=== PATIENT | female | born 1970 | race Two or more races ===

== ENCOUNTER → 2018-07-07 10:25 | Outpatient (CLI) | payer OTHER, SELFPAY ==
--- NOTE | 2018-07-07 10:29 | BI_ITS ---
MAMMOGRAPHY - BILATERAL SCREENING REASON FOR EXAM: Female, 48 years old. Routine annual screening examination. PERTINENT HISTORY: Non-contributory. TECHNIQUE: Digital bilateral breast terrell (3D mammographic acquisition) in the CC and MLO projections. 2-D mediolateral oblique (MLO) and craniocaudad (CC) views of both breasts were obtained. CAD: Full Field Digital Mammography with Computer Added Detection was performed. COMPARISON: Comparison is made with prior artery examination dated December 06, 2016. FINDINGS: Breast Composition: The breasts are heterogeneously dense, which may obscure small masses. There are no dominant masses or suspicious calcifications. Stable benign-appearing left axillary lymph nodes. No other significant abnormalities are identified. There has been no significant change since the prior study. BI/SCREENING MAMM (CAD), BILAT IMPRESSION: Stable bilateral screening mammogram. Yearly follow-up mammogram recommended. (A) ASSESSMENT CATEGORY: BIRADS Category 2: Benign. A letter regarding these results will be sent to the patient by the facility within 30 days. Approximately 10% of breast cancers are not detected by mammography. A normal mammogram should not delay biopsy of a clinically suspicious abnormality. [id number] Electronically Signed: Ricci Reddy MD at 9:02 EST Tel [phone], Service support ,
== END ==
PROVIDERS: Family Provider Family Medicine; PCP Family Medicine; Referring Provider Family Medicine; Visit Provider Family Medicine
DX: Z12.31 Encounter for screening mammogram for malignant neoplasm of breast (principal)
CPT/HCPCS: 77063; 77067

== ENCOUNTER 2018-07-23 21:42 | Emergency (ER) | payer OTHER, SELFPAY ==
[2018-07-23 21:43] VITALS: BP 199/118; PULSE 88; RESP 16; TEMP 36.7; O2SAT 98; BMI 26.6
[2018-07-23] MEDS: Ondansetron 4 MG/2 ML Vial IV (22:20)
[2018-07-23] MEDS: Ketorolac 30 MG/ML Syringe IV (22:20)
[2018-07-23] MEDS: Mag Hydrox/Al Hydrox/Simeth 30 ML UDC PO (22:20)
[2018-07-23] MEDS: 0.9% Normal Saline 1,000 ML 1000 ML IV (22:20)
[2018-07-23 22:33] LABS: Absolute Lymphocyte Count 1.91 X10^3/ul (0.83-4.51); Absolute Neutrophil Count 4.4 X10^3/uL (2.0-7.7); Basophil# 0.02 X10^3/uL; Basophil% 0.3 % (0-1); Eosinophil# 0.15 X10^3/uL; Eosinophils% 2.1 % (0-5); Hematocrit 38.6 % (37-47); Hemoglobin 12.6 g/dl (12.0-15.0); Lymphocyte # 1.91 X10^3/ul (4.0); Lymphocyte % 26.1 % (19-41); Mean Corp Hgb Conc 32.6 g/gl (32-36); Mean Corpuscular Volume 79.6 fL (81-99); Mean Platelet Vol. 9.3 fl (6.2-12.0); Monocyte# 0.84 X10^3/uL; Monocyte% 11.5 % (0-10); Neutrophil # 4.39 X10^3/uL (2.7-7.7); POSITIVE COUNT NO; POSITIVE DIFFERENTIAL NO; POSITIVE MORPHOLOGY NO; Platelet Count 194 K/mm3 (150-450); RBC Distribution Width SD 37.2 fl (35.1-43.9); Red Blood Count 4.85 M/mm3 (4.2-5.4); White Blood Count 7.3 K/mm3 (4.4-11.0)
[2018-07-23 22:49] LABS: AST(SGOT) 16 U/L (15-37); Alanine Aminotransfer ALT/SGPT 22 U/L (13-56); Albumin, Serum 3.5 g/dL (3.2-5.0); Alkaline Phosphatase 129 U/L (45-117); Anion Gap 5 (5-15); BUN 13 mg/dL (7-18); BUN/Creat Ratio 16.6 RATIO (10-20); Calcium,Total 8.3 mg/dL (8.5-10.1); Chloride 106 mmol/L (98-107); Creatinine, Serum 0.78 mg/dL (0.55-1.02); EST Glomerular Filtration Rate 84 mL/min (>60); Est Glom Filt Rate - Afr Amer 101 mL/min (>60); Estimated Creatinine Clearance 80.23 ml/min; Globulin 3.5 g/dL (2.2-4.2); Glucose 110 mg/dL (74-106); Lipase 148 U/L (73-393); Potassium 3.4 mmol/L (3.5-5.1); Sodium Level 140 mmol/L (136-145)
[2018-07-23 23:02] LABS: Pregnancy, Serum, hCG Quali. NEGATIVE Negative (0-9 Nonpreg)
--- NOTE | 2018-07-23 23:16 | ED.VISSUMM ---
- ER Visit Summary Date of Service: 07/23/18 Chief Complaint: Abdominal pain History of Present Illness: The patient is a [address] Navarro. She reports that she has upper abdominal pain began 2 days ago. It is a continuous dull, cramping pain. Zeta 10 at worst and 5-10 currently. Is worsened by movement and eating. Is relieved by nothing. She has had nausea without vomiting. No diarrhea. Her last bowel was today. No melena or hematochezia. No dysuria or frequency. She is on her menstrual cycle now. Patient works as an [employer] and has had multiple sick contacts. She has not been camping out of the country. No recent antibiotic use. No possible bad food exposure. She does not drink well water. Physical Examination: Vitals: Stable. Afebrile. General: Well-nourished and well-developed. Head: Normocephalic atraumatic. Neck: Supple, no lymphadenopathy. No JVD. Nontender. Cardiovascular: Regular rate and rhythm. No murmurs. Respiratory: No respiratory distress. Clear to auscultation bilaterally. Abdominal: Soft, mild epigastric tenderness to palpation, nondistended, normal bowel sounds. No guarding, rebound, or peritoneal signs. Back: Nontender. Extremities: Nontender, no edema. Skin: Normal color, no rash. Neurologic: Alert and oriented ?3. Cranial nerves II through XII are intact. Normal strength and sensation. Psych: Normal affect. Test Results: CBC is remarkable for monocytes of 12. Chem-7 is more for glucose 110 and calcium of 8.3. LFTs are normal. Lipase is minimally elevated at 129. test is negative. Emergency Department Course and Treatment: Patient was treated with Toradol and Zofran IV. She was given a GI cocktail and had complete resolution of her pain. She is resting comfortably. Treatment Plan: Patient reports that she was taking a great deal of naproxen until last week. I suspect that there is a component of gastritis. She will be discharged with Zofran and Zantac. Instructed to follow-up with her primary care physician in 3-5 days if not improving. Return to the emergency department for any worsening symptoms. Disposition: To home in improved and stable condition. Impression: 1. Abdominal pain, uncertain cause. This note was generated with Dragon dictation software. It may contain incorrect words, spelling, and punctuation that were not noted in review of the chart prior to signing ED Disposition - Plan for ED Patient: Chief Complaint: Abd Pain Instructions: ED Abdominal Pain Unkn Cause Prescriptions: Ondansetron [Zofran Odt] 4 mg PO Q8H PRN PRN #10 tablet PRN Reason: Nausea Ranitidine [Zantac] 300 mg PO DAILY #30 tablet Referrals: Guzman Navarro [Primary Care Provider] - 3-5 Days if not improving
[2018-07-23 23:26] VITALS: BP 157/99; PULSE 84; RESP 15; O2SAT 99
== END 2018-07-23 23:31 | disposition home or self-care (01) ==
LOC: ED 22:07
PROVIDERS: Emergency Provider Emergency Medicine; Family Provider Family Medicine; PCP Family Medicine
DX: R10.10 Upper abdominal pain, unspecified (principal); R11.0 Nausea; I10 Essential (primary) hypertension; Z79.899 Other long term (current) drug therapy
CPT/HCPCS: 80053; 83690; 84703; 85025; 96361; 96374; 96375; 99284; J7030; J2405

== ENCOUNTER → 2018-07-29 08:41 | Outpatient (CLI) | payer OTHER, SELFPAY ==
[2018-07-23 21:43] VITALS: BMI 26.6
--- NOTE | 2018-07-29 08:45 | US_ITS ---
STUDY: ABDOMINAL ULTRASOUND REASON FOR EXAM: Female, 48 years old. Pain. TECHNIQUE: Transabdominal ultrasound was performed with real-time and static sanford scale imaging. TECHNICAL QUALITY: Adequate. COMPARISON: None. FINDINGS: Liver: The liver measures 15.9 cm. There is normal echogenicity of the liver. The bile ducts are within normal limits. There is hepatic color flow. The direction of portal flow is hepatopetal. There is no demonstrated mass lesion. Portal vein measurement: Gallbladder: Normal distended gallbladder. The gallbladder wall measures 2.8 mm. There is a negative sonographic Palencia's sign. There is no pericholecystic fluid. There are no gallstones. Common Bile Duct (C.B.D.): The common bile duct measures 3 mm. Pancreas: Normal size of the head, body and tail of the pancreas. There is normal echogenicity of the pancreas. There is no demonstrated pancreatic mass or cyst. Spleen: Normal size of the spleen. The spleen measures 10.3 cm. Right Kidney: Normal size of the right kidney. The right kidney measures 10.4 cm. Normal renal cortex. The right cortex measures 1.8 cm. There is no demonstrated renal mass or cyst. Several small nonobstructing stones are seen no larger than 4 mm. There is no right hydronephrosis. Left Kidney: Normal size of the left kidney. The left kidney measures 10.5 cm. Normal renal cortex. The left cortex measures 1.9 cm. There is no demonstrated renal mass or cyst. There is a 1 cm nonobstructing stone. There is no left hydronephrosis. Aorta: 2.6 cm I.V.C.: The IVC is patent. There is no ascites. US/Abdomen Complete IMPRESSION: Bilateral nonobstructing renal stones. No definite acute economic. Electronically Signed: Damián Yeung MD at 10:43 EST , Service support ,
--- OUTSIDE RECORDS SUMMARY | 2018-09-14 07:05 | XMS RPT_ITS ---
:1970 Author Organization OH[facility] Care Team Providers Name Role Phone Reji Ugalde Attending Unavailable UNKNOWN, PROVIDER Referring Unavailable Fracasso, Guzman Primary Care Unavailable Fracasso, Guzman Attending Unavailable Fracasso, Guzman Referring Unavailable Fracasso, Guzman Primary Care Unavailable Fracasso, Guzman Attending Unavailable Fracasso, Guzman Referring Unavailable Fracasso, Guzman Primary Care Unavailable James Rossi Attending Unavailable Fracasso, Guzman Primary Care Unavailable PETRILLA, JOHNNIE Attending Unavailable PETRILLA, JOHNNIE Referring Unavailable PETRILLA, JOHNNIE Primary Care Unavailable Fracasso, Guzman Primary Care Unavailable Tara Hernandez Attending Unavailable PROBLEMS PROBLEMS DATE TYPE CONDITION / CODE ATTENDING STATUS SOURCE 08/05/2018 Admitting Chronic [facility] Diagnosis cholecystitis / Reji System K81.1(ICD-10) Repository 08/05/2018 Admitting Allergic rhinitis, [facility] Diagnosis unspecified / Re[facility] System J30.9(ICD-10) Repository 08/05/2018 Admitting Carpal tunnel [facility] Diagnosis syndrome, [facility] System unspecified upper Repository limb / G56.00(ICD-10) 08/05/2018 Admitting Essential (primary) [facility] Diagnosis hypertension / Reji System I10(ICD-10) Repository 08/05/2018 Admitting Atopic dermatitis, [facility] Diagnosis unspecified / Reji System L20.9(ICD-10) Repository 08/05/2018 Admitting Raynaud's syndrome [facility] Diagnosis without gangrene / Reji System I73.00(ICD-10) Repository 08/05/2018 Admitting Allergy status to [facility] Diagnosis oth drug/meds/biol Reji System subst status / Repository Z88.8(ICD-10) PROCEDURES PROCEDURES No Procedure Records FoundRESULTS RESULTS OP NOTE Observed: 08/05/2018 Status: F Source: [facility] 2:11 PM SYSTEM REPOSITORY OPERATIVE NOTE DATE OF PROCEDURE: 08/05/2018 SURGEON: REJI UGALDE M.D., TITUS GLASSWARE FINISHER: see chart PREOPERATIVE DIAGNOSIS: Chronic cholecystitis POSTOPERATIVE DIAGNOSIS: Same OPERATION: Laparoscopic cholecystectomy ANESTHESIA: General anesthesia ESTIMATED BLOOD LOSS: less than 50 COMPLICATIONS: None SPECIMENS: Gallbladder HISTORY: The patient is a 48 y.o. year old female with history of above preop diagnosis. I explained the risk, benefits, expected outcome, and alternatives to the procedure. Patient understands and is in agreement to proceed with operation. PROCEDURE: Patient taken to the operating room and placed supine on the operating table. After adequate anesthesia and timeout protocol was completed. The surgical area was prepped and draped in standard sterile fashion. Local anesthetic was placed at each incision site prior to making each incision. 5mm infraumbilical incision made and Veress needle placed intraabdominal with proper placement confirmed by normal flush saline. Pneumoperitoneum was established with CO2 gas to pressure of 15 mm Hg and 5mm non-bladed infraumbilical port then placed. Under direct vision, a 10/12 mm non-bladed trocar/port was inserted in the epigastrium just to the right of the midline. Two 5mm non-bladed trocars/ports were placed in the right upper quadrant under direct visualization. Patient then placed in reverse trendelenburg and rotated to the left. The gallbladder was grasped at the fundus with grasper through the right lateral canula and at the neck with a grasper through the right mid canula. The neck of the gallbladder was retracted laterally. Dissection in the region of the triangle of Calot revealed the cystic duct and cystic artery. The cystic duct was isolated. The cystic duct was clipped distally x 2 and proximally x 2. The cystic duct was then transected. The cystic artery was then isolated and doubly clipped proximally and distally then transected. The gallbladder was dissected from the liver bed with right angle hook cautery. Gallbladder was then removed from abdomen using a laparoscopic bag. The right upper quadrant was irrigated until clear. Epigastric fascia closed with 2-0 vicryl suture. Hemostasis was observed. The abdomen was then desulflated and cannulas removed. The wounds were irrigated and the skin incisions closed with interrupted 4-0 Vicryl subcuticular sutures. Benzoin, steri strips, and sterile dressings were applied. The sponge and needle count were correct. The patient tolerated the procedure well and was sent to PACU in stable condition. Reji Ugalde M.D., FACS Observed: 08/05/2018 Status: F Source: [facility] SURGICAL PATHOLOGY 1:54 PM SYSTEM REPOSITORY [id number] [facility] PATHOLOGY AND LABORATORY MEDICINE [address] [place] [address] [phone] Fax - FINAL SURGICAL PATHOLOGY REPORT NAME: SUSHIL LACY : 1970 48 Y Nickolas BENNETT NO.: [id number] LOCATION: [facility] 333 2 PROCEDURE 08/05/2018 DATE: SURGEON: REJI UGALDE MD RECEIVED 08/05/2018 DATE: ATTENDING: REJI UGALDE MD REPORT DATE: 08/07/2018 COPIES TO: DIAGNOSIS: GALLBLADDER, CHOLECYSTECTOMY - CHRONIC CHOLECYSTITIS JAW/SSF <Sign Out Signature> MAMADOU LOVING M.D. CLINICAL INFORMATION: Biliary colic SPECIMEN: GALLBLADDER GROSS DESCRIPTION: Gallbladder Received in formalin is a 7 x 3 x 3 cm intact gallbladder. The cystic duct appears patent. The serosal surface is sanford-green, smooth, and glistening. The lumen contains abundant, green, mucoid bile and there are no calculi grossly identified within the lumen or within the specimen container. The mucosa is bile-stained, green, flattened, and the wall thickness is uniform at 0.2 cm. No masses are identified. Mold Press Operator sections are submitted in one cassette. (3 ss, 1) [facility] Disclaimer: The following statement applies to all immunohistochemistry, in situ hybridization, molecular studies, and immunofluorescence testing. The use of one or more reagents in the above tests is regulated as an analyte specific reagent (ASR). These tests were developed and their performance characteristics determined by the clinical laboratories of [facility]. They have not been cleared by the US Food and Drug Administration (FDA). The FDA has determined that such clearance or approval is not necessary. All the above immunostains were performed on paraffin embedded tissue. Appropriate positive and negative controls (where applicable) were run in parallel with the patient's specimen; these controls showed expected staining pattern, with acceptable intensity of staining. Immunohistochemical assays have not been validated on decalcified tissues. Results should be interpreted with caution given the raised possibility of false negativity on decalcified specimens. Case reviewed at [place] [address] [place] [address]. DEPARTMENT OF PATHOLOGY AND LABORATORY MEDICINE [place], [place] [address] HCG,URINE QUAL Collected: 08/05/2018 Status: F Source: [facility] 10:45 AM SYSTEM REPOSITORY TYPE CODE TESTS RESULT OUT OF REFERENCE UNITS RANGE LAB HCGUR Negative NA Negative HCG,Urine Qual Result Comment: is the most common reason for HCG in urine, although choriocarcinoma, hydatidiform mole, and certain nontropho- blastic malignancies also result in detectable urinary HCG levels. Sensitivity = 20mIU/mL. Performed By: #### HCGUR #### [facility] [address] [place] [address] 12 LEAD ELECTROCARDIOGRAM Observed: 08/01/2018 Status: F Source: [place] 9:10 AM [facility] REPOSITORY [facility] Cardiovascular Services [address] [place] [address] 12 Lead EKG 07/29/18 1849 MR#: [id number] Acct: [id number] Name: SUSHIL LACY Rep #: [id number] : 1970 48 From: Willem Olvera MD Attending Dr: Status: DEP ER Ordering Dr: Tara Hernandez MD Date: 07/29/18 Location: ED Sex: F UTD Admitted: Test Reason : ABD PAIN Blood Pressure : / mmHG Vent. Rate : 078 BPM Atrial Rate : 078 BPM P-R Int : 152 ms QRS Dur : 074 ms QT Int : 380 ms P-R-T Axes : 064 039 052 degrees QTc Int : 433 ms Normal sinus rhythm with sinus arrhythmia Normal ECG Confirmed by RODRIGUEZ HOOVER, WILLEM ([id number]), photographic editor SANNA LEÓN ([id number]) on 08/01/2018 9:09:46 AM Referred By: Guzman Navarro Confirmed By:WILLEM OLVERA MD 08/01/18 0909 Date Willem Olvera MD CC: Tara Hernandez MD; Guzman Navarro Signed HEPATOBILLIARY IMG Observed: 07/30/2018 Status: F Source: [place]EL W/PHARM INT 12:09 PM [facility] REPOSITORY [facility] Imaging Services [address] [place] [id number] Hepatobilliary Img w/Pharm Int MR#: [id number] Acct: [id number] Name: BAMBISUSHIL L Rep #: [id number] : 1970 F 48 From: Howard Guerrero DO PCP: Guzman Navarro Status: REG CLI Study: Hepatobilliary Img w/Pharm Int Date of Exam: 07/30/18 Exam# [id number] Ordering Dr: Guzman Navarro CLINICAL: 48-year-old female with history of right upper quadrant abdominal pain. RADIONUCLIDE HEPATOBILIARY SCINTIGRAPHY COMPARISON: Abdominal ultrasound report 07/29/2018, CT of the abdomen- pelvis report 07/29/2018 FINDINGS: Following the intravenous administration of 5.8 mCi of 99m Tc Mebrofenin, hepatobiliary images reveal: 1. Relatively prompt and homogeneous radiopharmaceutical concentration is noted by a normal sized liver. No parenchymal defects are identified. 2. Gallbladder activity is identified at 10 minutes post radiopharmaceutical administration. 3. Small intestinal tract is observed at 30 minutes following tracer injection. 4. Washout of the radiopharmaceutical by the hepatic parenchyma appears qualitatively normal. The patient was administered a fatty meal (8 ounces Boost). The post fatty meal ingestion gallbladder ejection fraction calculated at 30 minutes following fatty meal administration was noted to be 42.0 % (normal greater than 30%). Duodenal-gastric reflux is demonstrated following the administration of the fatty meal. NM/Hepatobilliary Img w/Pharm Int IMPRESSION: 1. A gallbladder ejection fraction calculated to be greater than 30% following the administration of an ingested fatty meal makes the probability of functional hepatobiliary disease (gallbladder and/or sphincter of Oddi dyskinesia) and/or organic hepatobiliary disease (chronic acalculous cholecystitis and/or cystic duct syndrome) to be low. (Amy and Ifeanyi, J Nucl Med 43: 1603, 2002). 2. There is scintigraphic evidence of post fatty meal duodenal gastric reflux. Electronically Signed: Howard Guerrero DO at 14:19 EST Tel , Service support , CC: Guzman Navarro Press Officer: Signed EMERGENCY DEPARTMENT Observed: 07/30/2018 Status: F Source: [place] SUMMARY 12:29 AM [facility] Medical Records Department [address] [place] [address] Emergency Department Summary 07/29/18 1833 MR#: [id number] Acct: [id number] Name: SUSHIL LACY Rep #: [id number] : 1970 48 From: Tara Hernandez MD PCP: Guzman Navarro Status: DEP ER - ER Visit Summary Date of Service: 07/29/18 Chief Complaint: Abdominal pain History of Present Illness: The patient is a 48 F who presents for 8 days of abdominal pain. Patient was seen on July 23 for the same complaint. Abdominal pain started in the umbilical region and was sharp. Patient was evaluated and had an unremarkable workup. Since then the pain became in the bilateral upper abdomen 5 days ago, today's in the right upper quadrant and is constant pain with intermittent sharp stabbing episodes. Today the pain is also in the bilateral upper back. Patient has a cough. She denies fever, chest pain, shortness of breath, vomiting, diarrhea, blood in stool or urinary symptoms. Patient had an ultrasound performed this morning that was ordered by her primary care doctor that showed no gallbladder, pancreatic or renal pathology that would explain her symptoms. Patient denies any medical history other than hypertension. She does not drink or smoke. Physical Examination: Vital signs: afebrile, hemodynamically stable, no hypoxia on room air General: well nourished, well developed, in no distress Skin: warm, dry, no rash, no pallor HEENT: normocephalic and atraumatic; PERRL, EOMI, moist mucous membranes Cardiovascular: regular rate and rhythm without murmurs, no peripheral edema, 2+ pulses all distal extremities Respiratory: No increased work of breathing, lungs are clear to auscultation bilaterally, no rales, rhonchi or wheezing Abdominal: Abdomen is soft, diffusely tender with normoactive bowel sounds, no guarding or rebound, no masses MSK: Moves all extremities, no deformities, normal strength Neuro: Awake and alert, oriented 4. No facial droop, sensation and motor function intact and symmetric Test Results: Abnormal Lab Results Clinical Impression(s) from Imaging Studies Abdomen/Pelvis CT 07/29/18 18:30 IMPRESSION: Tiny right pleural effusion and mild basilar atelectasis. Left nephrolithiasis without evidence for hydronephrosis or ureteral calculus. Minor diverticular changes of the sigmoid colon without evidence for acute diverticulitis Electronically Signed: David Caldera MD at 21:14 EST , Service support , Chest X-Ray 07/29/18 20:28 IMPRESSION: No acute cardiopulmonary pathology Electronically Signed: David Caldera MD at 21:17 EST , Service support , Medications Given Discontinued Medications Hydrocodone Bitart/Acetaminophen ([place] 5mg-325mg) 1 tablet PO X1 ONE Stop: 07/29/18 21:46 Last Admin: 07/29/18 22:01 Dose: 1 tablet Hydrocodone Bitart/Acetaminophen ([place] 5mg-325mg) 0 tablet PO .TAKE HOME MED JESSICA Last Admin: 07/29/18 22:02 Dose: 4 tablet Sodium Chloride () 1,000 mls @ 1,000 mls/hr IV .Q1H ONE Stop: 07/29/18 19:29 Last Admin: 18 18:56 Dose: 1,000 mls/hr Morphine Sulfate () 4 mg IV X1 ONE Stop: 18 18:31 Last Admin: 18 18:56 Dose: 4 mg Ondansetron HCl (Zofran) 4 mg IV X1 ONE Stop: 18 18:31 Last Admin: 07/29/18 18:56 Dose: 4 mg Emergency Department Course and Treatment: This is patient's third medical encounter for this abdominal pain. Chart review shows her ultrasound was unremarkable this morning. Because of patient's pain is in the upper abdomen and in the thoracic back, chest workup was included today. EKG showed sinus rhythm without ischemia or ectopy. Troponin negative. Chest x-ray showed no signs of infiltrates or pneumothorax. CBC showed no leukocytosis. CMP was unremarkable. Urinalysis was positive for gross hematuria, and upon questioning, the patient stated she is currently menstruating. CT of the abdomen and pelvis with contrast was performed since this is patient's third visit for this pain. It showed no process to explain her ongoing and evolving abdominal pain. It did show a tiny right pleural effusion with atelectasis, nonobstructing renal stones, diverticulosis without diverticulitis. Patient had received morphine and Zofran for pain with some relief. She was given a dose of [place] prior to discharge and sent with a home pack for the same. She already has antiemetics at home. She has an appointment at 10:15 in the morning with her primary care doctor for another evaluation of her abdominal pain. Patient will keep this appointment. She was given a copy of her lab work and imaging results to share with her primary care doctor. We discussed she may need referral to gastroenterology if her pain persists. Patient discharged home in improved condition. Treatment Plan: [] Disposition: [] Impression: Abdominal pain, unknown etiology; menstrual period This note was generated with [employer] software. It may contain incorrect words, spelling, and punctuation that were not noted in review of the chart prior to signing ED Disposition - Plan for ED Patient: Disposition: Home or Assisted Living Chief Complaint: Abd Pain Instructions: ED Abdominal Pain Unkn Cause Referrals: Guzman Navarro [Primary Care Provider] - 1 Day Additional Instructions: Keep your appointment with your doctor tomorrow morning as already scheduled. Use your nausea medicine that you have at home as needed for nausea and you may use the home dose pack of pain medication as needed for pain. You may need referral to a programming instructor, and discussed this with your doctor tomorrow. If you have any worsening of your condition or any new concerning symptoms, please return immediately to the emergency department for another evaluation. What to do if you have Problems For any increased pain, shortness of breath, bleeding, nausea or vomiting, chest pain, or any unexpected problems, contact your Primary Care Provider. Call [employer] [facility] ([phone]) or report to the closest Emergency Room. Call 911 if necessary. 07/30/18 0029 <Electronically signed by Tara Hernandez MD> Date Tara Hernandez MD Cosigner Signature (If Indicated): Date CC: Guzman Navarro DISCHARGE INSTRUCTION Observed: 07/29/2018 Status: F Source: [place] 11:31 PM [facility] REPOSITORY [facility] Medical Records Department [address] [place] [address] Discharge Instruction 07/29/18 2146 MR#: [id number] Acct: [id number] Name: SUSHIL LACY Rep #: [id number] : 1970 48 From: Tara Hernandez MD PCP: Guzman Navarro Status: [facility] ER ED Disposition - Plan for ED Patient: Disposition: Home or Assisted Living Chief Complaint: Abd Pain Instructions: ED Abdominal Pain Unkn Cause Referrals: Guzman Navarro [Primary Care Provider] - 1 Day Additional Instructions: Keep your appointment with your doctor tomorrow morning as already scheduled. Use your nausea medicine that you have at home as needed for nausea and you may use the home dose pack of pain medication as needed for pain. You may need referral to a programming instructor, and discussed this with your doctor tomorrow. If you have any worsening of your condition or any new concerning symptoms, please return immediately to the emergency department for another evaluation. What to do if you have Problems For any increased pain, shortness of breath, bleeding, nausea or vomiting, chest pain, or any unexpected problems, contact your Primary Care Provider. Call [facility] [facility] ([phone]) or report to the closest Emergency Room. Call 911 if necessary. 07/29/18 5251 <Electronically signed by Tara Hernandez MD> Date Tara Hernandez MD Cosigner Signature (If Indicated): Date CC: Guzman Navarro URINALYSIS, COMPLETE Collected: 07/29/2018 Status: F Source: [facility] 6:55 PM [facility] REPOSITORY Order Comment: Order Date: 07/29/18 COLOR OF URINE MAY AFFECT DIPSTICK RESULTS. How was Urine Obtained? CLEAN CATCH TYPE CODE TESTS RESULT OUT OF RANGE REFERENCE UNITS LAB L400.3000 Yellow COLOR Normal Brown LAB L400.3050 Clear Normal CLARITY Sl. Cloudy LAB L400.3200 Normal mg/dl Normal GLUCOSE, UR Normal LAB L400.3300 Negative mg/dL Normal BILIRUBIN URINE Negative LAB L400.3400 Negative mg/dl High 5 KETONE UR LAB L400.3465 1.002-1.030 Normal SP.GR. DIPSTX 1.015 LAB L400.3550 5.0 - 8.0 pH UR Normal 7.0 LAB L400.3600 Negative mg/dl High PROT 30 DIPSTX LAB L400.3700 Normal mg/dl Normal UROBILI Normal LAB L400.3750 Negative Normal NITRITE UR Negative LAB L400.3780 Negative /ul High OCCULT BLOOD-UR 250 LAB L400.3800 Negative /ul High LEUK ESTERASE 100 LAB L400.4050 0-5 /hpf WBC Normal 0-5 SEEN LAB L400.4100 0-5 /hpf > Normal RBC-UA 100 SEEN LAB L400.4150 5-10 /hpf SQUAM Normal EPI 0-5 SEEN LAB L400.4300 None Seen /hpf 0 Normal BACTERIA SEEN LAB L400.4350 <or=2+ /hpf 0 Normal MUCUS, URINE SEEN Performed By: #### L400.0001 #### [facility] [address] [facility] [place], [address] Observed: 07/29/2018 Status: F Source: [place] CULTURE, URINE 6:55 PM [facility] REPOSITORY Order Date: 07/29/18 Urine Culture ORGANISM 1: Mixed Gram Positive Organisms [place] Count >100,000 MIX CULTURE Mixed contaminants. Submit a new specimen if indicated. Performed By: #### M100.0650 #### [facility] [address] [facility] [place], [address] COMPREHENSIVE METABOLIC Collected: 07/29/2018 Status: F Source: [place] PROFIL 6:40 PM [facility] REPOSITORY TYPE CODE TESTS RESULT OUT OF RANGE REFERENCE UNITS LAB L501.0100 74-106 mg/dL Normal GLU 97 Result Comment: Please note revised GLUCOSE reference range effective 2017. LAB L501.1000 7-18 mg/dL Normal BUN 16 LAB L501.1100 0.55-1.02 mg/dL Normal CREAT,SERUM 0.88 Result Comment: The validity of the calculated GFR AND GFRAA in patients over 70 years has not been determined. Clinical correlation is essential. LAB L501.1110 >60 mL/min Normal EST GFR 73 Result Comment: Non- GFR Calc LAB L501.1115 >60 mL/min Normal EST GFR - AA 88 Result Comment: GFR Calc LAB L501.1255 ml/min Normal Estimated CRCL 65.38 LAB L501.1300 10-20 RATIO Normal BUN/CRE 18.1 LAB L501.1500 6.4-8. g/dL Normal 2 T PROT 7.4 LAB L501.1800 3.2-5. g/dL Normal 0 ALB 3.8 LAB L501.1950 2.2-4. g/dL Normal 2 GLOB 3.6 LAB L501.2000 0.9-2. RATIO Normal 4 A/G 1.1 LAB L501.2200 8.5-10 mg/dL Normal .1 CA 8.8 LAB L501.4100 15-37 U/L Normal AST 15 LAB L501.4305 45-117 U/L High ALK P 131 LAB L501.4405 13-56 U/L Normal ALT 23 LAB L501.4600 0.20-1 mg/dL Normal .00 T BILI 0.80 LAB L501.5300 136-14 mmol/L Normal 5 NA 139 LAB L501.5600 3.5-5. mmol/L Normal 1 K 3.7 LAB L501.5900 98-107 mmol/L Normal CL 106 LAB L501.6100 21.0-3 mmol/L Normal 2.0 CO2 27.0 LAB L501.6200 5-15 Normal GAP 6 Performed By: #### L500.4050, L501.2450, L501.4010 #### [facility] [address] [facility] [place], [place], [id number] LIPASE Collected: 07/29/2018 Status: F Source: [place] 6:40 PM [facility] REPOSITORY TYPE CODE TESTS RESULT OUT OF RANGE REFERENCE UNITS LAB L501.2450 73-393 U/L Normal LIPASE 90 Performed By: #### L500.4050, L501.2450, L501.4010 #### [facility] [address] [place], [place], [id number] TROPONIN-I Collected: 07/29/2018 Status: F Source: [place] 6:40 PM [facility] REPOSITORY TYPE CODE TESTS RESULT OUT OF RANGE REFERENCE UNITS LAB L501.4010 <0.045 ng/mL Normal < 0.015 TROPONIN-I Result Comment: TROPONIN-I EXPECTED VALUES <0.045 Negative 0.045 - 0.590 Consistent with Cardiac Damage > OR = 0.600 Critical Value Not every elevated troponin is indicative of FL. These values should be used with clinical judgement in examining the patient's clinical picture for diagnosis. To establish a diagnosis of FL versus myocardial injury, there must be a demonstrated rise and/or fall in the troponin values, in addition to ischemic symptoms, EKG changes, new regional wall motion abnormality, and/or angiographical evidence. PLEASE NOTE: REFERENCE RANGES EDITED 17 Performed By: #### L500.4050, L501.2450, L501.4010 #### [facility] [place], [address] CBC W/DIFF, AUTOMATED Collected: 07/29/2018 Status: F Source: [place] 6:40 PM [facility] REPOSITORY TYPE CODE TESTS RESULT OUT OF RANGE REFERENCE UNITS LAB L100.1000 4.4-11.0 K/mm3 Normal WBC 5.7 LAB L100.1200 4.2-5.4 M/mm3 Normal RBC 5.11 LAB L100.1300 12.0-15.0 g/dl Normal HGB 13.3 LAB L100.1400 37-47 % Normal HCT 40.1 LAB L100.1500 81-99 fL Low MCV 78.5 LAB L100.1600 27.0-32.0 pg Low MCH 26.0 LAB L100.1700 32-36 g/gl Normal MCHC 33.2 LAB L100.1810 11.6-14.6 % Normal RDW CV 12.9 LAB L100.1820 35.1-43.9 fl Normal RDW SD 36.5 LAB L100.1900 150-450 K/mm3 Normal PLT 211 LAB L100.2000 6.2-12.0 fl Normal MPV 9.6 LAB L100.2100 47-70 % Normal NEUT% 57.4 LAB L100.2200 19-41 % Normal LY% 30.0 LAB L100.2300 0-10 % High MONO% 11.3 LAB L100.2400 0-5 % Normal EO% 1.0 LAB L100.2500 0-1 % Normal BASO% 0.3 LAB L100.2550 0.0-0.9 % Normal IM GRAN % 0.000 Result Comment: IG% - Immature Granulocytes (promyelocytes, myelocytes and metamyelocytes) > 1% indicates that a LEFT SHIFT is Present. LAB L100.2620 2.0-7.7 X10 3/uL Normal Absolute Neut 3.3 LAB L100.2720 0.83-4.51 X10 3/ul Normal Absolute Lymph 1.72 Performed By: #### L100.0100 #### [facility] [address] [place], [address] ABDOMEN/PELVIS WITH Observed: 07/29/2018 Status: F Source: [place] CONTRAST 6:32 PM [facility] REPOSITORY [facility] Imaging Services [address] [place] [address] Abdomen/Pelvis WITH Contrast MR#: [id number] Acct: [id number] Name: SUSHIL LACY Rep #: [id number] : 1970 F 48 From: David Caldera MD PCP: Guzman Navarro Status: REG ER Study: Abdomen/Pelvis WITH Contrast Date of Exam: 07/29/18 Exam# [id number] Ordering Dr: Tara Hernandez MD STUDY: CT ABDOMEN AND PELVIS WITH CONTRAST REASON FOR EXAM: Female, 48 years old. Right upper quadrant pain RADIATION DOSAGE (If Supplied By Facility): CTDIvol = ( 9.86 ) mGy, DLP = ( 704.68 ) mGycm TECHNIQUE: Transaxial images were obtained from the dome of the diaphragm to the symphysis pubis without oral contrast. 100ML ml of Isovue 300 contrast was administered. Sagittal and coronal images were reconstructed. Individualized dose optimization techniques were used for this CT. COMPARISON: None. FINDINGS: There is minor atelectasis at the right lung base.. There is a tiny right pleural effusion. The visualized portions of the heart are within normal limits. Liver is fatty infiltrated without mass or bile duct dilatation. Normal gallbladder and extrahepatic biliary system. Normal spleen. Normal pancreas. Normal bilateral adrenal glands. Normal right kidney. 2 tiny nonobstructing calculi in left kidney. No evidence for hydronephrosis or ureteral calculus. No renal mass.. Normal visualized stomach. Normal small intestine. Minor diverticular changes in the distal descending and sigmoid colon without evidence for acute diverticulitis The appendix is visualized and appears normal. Normal abdominal aorta. Normal inferior vena cava. Normal retroperitoneum. Normal urinary bladder. Normal abdominal wall. Normal osseous structures. CT/Abdomen/Pelvis WITH Contrast IMPRESSION: Tiny right pleural effusion and mild basilar atelectasis. Left nephrolithiasis without evidence for hydronephrosis or ureteral calculus. Minor diverticular changes of the sigmoid colon without evidence for acute diverticulitis Electronically Signed: David Caldera MD at 21:14 EST , Service support , CC: Tara Hernandez MD; Guzman Navarro Press Officer: Signed CHEST PA AND LATERAL Observed: 07/29/2018 Status: F Source: [place] 6:32 PM [facility] REPOSITORY [facility] Imaging Services [address] [place] [address] Chest PA and Lateral MR#: [id number] Acct: [id number] Name: SUSHIL LACY Rep #: [id number] : 1970 F 48 From: David Caldera MD PCP: Guzman Navarro Status: REG ER Study: Chest PA and Lateral Date of Exam: 07/29/18 Exam# [id number] Ordering Dr: Tara Hernandez MD STUDY: X-RAY CHEST REASON FOR EXAM: Female, 48 years old. Chest pain TECHNIQUE: PA and lateral COMPARISON: None. FINDINGS: The lungs are clear and expanded. There is no demonstrated pleural abnormality. Normal size heart. Normal mediastinum and jennifer. Normal visualized pulmonary arteries. Normal visualized aortic arch and descending thoracic aorta. Dorsal spine demonstrates scoliosis and degenerative change Normal visualized ribs, clavicles, and shoulders. There is no demonstrated abnormality of the visualized soft tissue structures of the upper abdomen. RAD/Chest PA and Lateral IMPRESSION: No acute cardiopulmonary pathology Electronically Signed: David Caldera MD at 21:17 EST , Service support , CC: Tara Hernandez MD; Guzman Navarro Press Officer: Signed ABDOMEN COMPLETE Observed: 07/29/2018 Status: F Source: MICHAEL 8:45 AM [facility] REPOSITORY [facility] Imaging Services [address] [place] [address] Abdomen Complete MR#: [id number] Acct: [id number] Name: SUSHIL LACY Rep #: [id number] : 1970 F 48 From: Damián Yeung MD PCP: Guzman Navarro Status: REG CLI Study: Abdomen Complete Date of Exam: 07/29/18 Exam# [id number] Ordering Dr: Guzman Navarro STUDY: ABDOMINAL ULTRASOUND REASON FOR EXAM: Female, 48 years old. Pain. TECHNIQUE: Transabdominal ultrasound was performed with real-time and static sanford scale imaging. TECHNICAL QUALITY: Adequate. COMPARISON: None. FINDINGS: Liver: The liver measures 15.9 cm. There is normal echogenicity of the liver. The bile ducts are within normal limits. There is hepatic color flow. The direction of portal flow is hepatopetal. There is no demonstrated mass lesion. Portal vein measurement: Gallbladder: Normal distended gallbladder. The gallbladder wall measures 2.8 mm. There is a negative sonographic Palencia's sign. There is no pericholecystic fluid. There are no gallstones. Common Bile Duct (C.B.D.): The common bile duct measures 3 mm. Pancreas: Normal size of the head, body and tail of the pancreas. There is normal echogenicity of the pancreas. There is no demonstrated pancreatic mass or cyst. Spleen: Normal size of the spleen. The spleen measures 10.3 cm. Right Kidney: Normal size of the right kidney. The right kidney measures 10.4 cm. Normal renal cortex. The right cortex measures 1.8 cm. There is no demonstrated renal mass or cyst. Several small nonobstructing stones are seen no larger than 4 mm. There is no right hydronephrosis. Left Kidney: Normal size of the left kidney. The left kidney measures 10.5 cm. Normal renal cortex. The left cortex measures 1.9 cm. There is no demonstrated renal mass or cyst. There is a 1 cm nonobstructing stone. There is no left hydronephrosis. Aorta: 2.6 cm I.V.C.: The IVC is patent. There is no ascites. US/Abdomen Complete IMPRESSION: Bilateral nonobstructing renal stones. No definite acute economic. Electronically Signed: Damián Yeung MD at 10:43 EST , Service support , CC: Guzman Navarro Press Officer: Signed EMERGENCY DEPARTMENT Observed: 07/24/2018 Status: F Source: [place] SUMMARY 12:56 AM [facility] REPOSITORY [facility] Medical Records Department [address] [place] [address] Emergency Department Summary 07/23/18 2316 MR#: [id number] Acct: [id number] Name: SUSHIL LACY Rep #: [id number] : 1970 48 From: James Rossi MD PCP: Guzman Navarro Status: DEP ER - ER Visit Summary Date of Service: 07/23/18 Chief Complaint: Abdominal pain History of Present Illness: The patient is a [address] Navarro. She reports that she has upper abdominal pain began 2 days ago. It is a continuous dull, cramping pain. Zeta 10 at worst and 5-10 currently. Is worsened by movement and eating. Is relieved by nothing. She has had nausea without vomiting. No diarrhea. Her last bowel was today. No melena or hematochezia. No dysuria or frequency. She is on her menstrual cycle now. Patient works as an [employer] and has had multiple sick contacts. She has not been camping out of the country. No recent antibiotic use. No possible bad food exposure. She does not drink well water. Physical Examination: Vitals: Stable. Afebrile. General: Well-nourished and well-developed. Head: Normocephalic atraumatic. Neck: Supple, no lymphadenopathy. No JVD. Nontender. Cardiovascular: Regular rate and rhythm. No murmurs. Respiratory: No respiratory distress. Clear to auscultation bilaterally. Abdominal: Soft, mild epigastric tenderness to palpation, nondistended, normal bowel sounds. No guarding, rebound, or peritoneal signs. Back: Nontender. Extremities: Nontender, no edema. Skin: Normal color, no rash. Neurologic: Alert and oriented 3. Cranial nerves II through XII are intact. Normal strength and sensation. Psych: Normal affect. Test Results: CBC is remarkable for monocytes of 12. Chem- 7 is more for glucose 110 and calcium of 8.3. LFTs are normal. Lipase is minimally elevated at 129. test is negative. Emergency Department Course and Treatment: Patient was treated with Toradol and Zofran IV. She was given a GI cocktail and had complete resolution of her pain. She is resting comfortably. Treatment Plan: Patient reports that she was taking a great deal of naproxen until last week. I suspect that there is a component of gastritis. She will be discharged with Zofran and Zantac. Instructed to follow-up with her primary care physician in 3-5 days if not improving. Return to the emergency department for any worsening symptoms. Disposition: To home in improved and stable condition. Impression: 1. Abdominal pain, uncertain cause. This note was generated with [employer] dictation software. It may contain incorrect words, spelling, and punctuation that were not noted in review of the chart prior to signing ED Disposition - Plan for ED Patient: Chief Complaint: Abd Pain Instructions: ED Abdominal Pain Unkn Cause Prescriptions: Ondansetron [Zofran Odt] 4 mg PO Q8H PRN PRN #10 tablet PRN Reason: Nausea Ranitidine [Zantac] 300 mg PO DAILY #30 tablet Referrals: Guzman Navarro [Primary Care Provider] - 3-5 Days if not improving What to do if you have Problems For any increased pain, shortness of breath, bleeding, nausea or vomiting, chest pain, or any unexpected problems, contact your Primary Care Provider. Call [facility] ([phone]) or report to the closest Emergency Room. Call 911 if necessary. 07/24/18 0056 <Electronically signed by James Rossi MD> Date James Rossi MD Cosigner Signature (If Indicated): Date CC: Guzman Navarro CBC W/DIFF, AUTOMATED Collected: 07/23/2018 Status: F Source: MICHAEL 10:25 PM [facility] REPOSITORY TYPE CODE TESTS RESULT OUT OF RANGE REFERENCE UNITS LAB L100.1000 4.4-11.0 K/mm3 Normal WBC 7.3 LAB L100.1200 4.2-5.4 M/mm3 Normal RBC 4.85 LAB L100.1300 12.0-15.0 g/dl Normal HGB 12.6 LAB L100.1400 37-47 % Normal HCT 38.6 LAB L100.1500 81-99 fL Low MCV 79.6 LAB L100.1600 27.0-32.0 pg Low MCH 26.0 LAB L100.1700 32-36 g/gl Normal MCHC 32.6 LAB L100.1810 11.6-14.6 % Normal RDW CV 13.0 LAB L100.1820 35.1-43.9 fl Normal RDW SD 37.2 LAB L100.1900 150-450 K/mm3 Normal PLT 194 LAB L100.2000 6.2-12.0 fl Normal MPV 9.3 LAB L100.2100 47-70 % Normal NEUT% 60.0 LAB L100.2200 19-41 % Normal LY% 26.1 LAB L100.2300 0-10 % High MONO% 11.5 LAB L100.2400 0-5 % Normal EO% 2.1 LAB L100.2500 0-1 % Normal BASO% 0.3 LAB L100.2550 0.0-0.9 % Normal IM GRAN % 0.000 Result Comment: IG% - Immature Granulocytes (promyelocytes, myelocytes and metamyelocytes) > 1% indicates that a LEFT SHIFT is Present. LAB L100.2620 2.0-7.7 X10 3/uL Normal Absolute Neut 4.4 LAB L100.2720 0.83-4.51 X10 3/ul Normal Absolute Lymph 1.91 Performed By: #### L100.0100 #### [facility] [address] [place], [address] COMPREHENSIVE METABOLIC Collected: 07/23/2018 Status: F [facility] REPOSITORY TYPE CODE TESTS RESULT OUT OF RANGE REFERENCE UNITS LAB L501.0100 74-106 mg/dL High GLU 110 Result Comment: Fasting Glucose result from 100 to 125 mg/dL suggests IMPAIRED HOMEOSTASIS per A.D.A. criteria. Please note revised GLUCOSE reference range effective 2017. LAB L501.1000 7-18 mg/dL Normal BUN 13 LAB L501.1100 0.55-1.02 mg/dL Normal CREAT,SERUM 0.78 Result Comment: The validity of the calculated GFR AND GFRAA in patients over 70 years has not been determined. Clinical correlation is essential. LAB L501.1110 >60 mL/min Normal EST GFR 84 Result Comment: Non- GFR Calc LAB L501.1115 >60 mL/min Normal EST GFR - AA 101 Result Comment: GFR Calc LAB L501.1255 ml/min Normal Estimated CRCL 80.23 LAB L501.1300 10-20 RATIO Normal BUN/CRE 16.6 LAB L501.1500 6.4-8. g/dL Normal 2 T PROT 7.0 LAB L501.1800 3.2-5. g/dL Normal 0 ALB 3.5 LAB L501.1950 2.2-4. g/dL Normal 2 GLOB 3.5 LAB L501.2000 0.9-2. RATIO Normal 4 A/G 1.0 LAB L501.2200 8.5-10 mg/dL Low .1 CA 8.3 LAB L501.4100 15-37 U/L Normal AST 16 LAB L501.4305 45-117 U/L High ALK P 129 LAB L501.4405 13-56 U/L Normal ALT 22 LAB L501.4600 0.20-1 mg/dL Normal .00 T BILI 0.20 LAB L501.5300 136-14 mmol/L Normal 5 NA 140 LAB L501.5600 3.5-5. mmol/L Low 1 K 3.4 LAB L501.5900 98-107 mmol/L Normal CL 106 LAB L501.6100 21.0-3 mmol/L Normal 2.0 CO2 29.0 LAB L501.6200 5-15 Normal GAP 5 Performed By: #### L500.4050, L501.2450 #### [facility] [address] [facility] [place], [address] LIPASE Collected: 07/23/2018 Status: F Source: [place] 10:25 PM [facility] REPOSITORY TYPE CODE TESTS RESULT OUT OF RANGE REFERENCE UNITS LAB L501.2450 73-393 U/L Normal LIPASE 148 Performed By: #### L500.4050, L501.2450 #### [facility] [address] [facility] [place], [address] ,SERUM,HCG QUALI. Collected: Status: F Source: [place] 07/23/2018 10:25 PM [facility] REPOSITORY TYPE CODE TESTS RESULT OUT OF REFERENCE UNITS RANGE LAB L700.7000 0-9 Nonpreg Negative Normal HCGSQUAL NEGATIVE LAB L700.6700 =>Qualitative mIU/mL Normal HCG Qual < 1 triggr Performed By: #### L700.6800 #### [facility] [address] [place], [address] SCREENING MAMM (CAD), Observed: 07/07/2018 Status: F Source: [place] BILAT 10:29 AM [facility] REPOSITORY [facility] Imaging Services [address] [place] [address] SCREENING MAMM (CAD), BILAT MR#: [id number] Acct: [id number] Name: SUSHIL LACY Nahomy Rep #: [id number] : 1970 F 48 From: Ricci Reddy MD PCP: DAYANNA Cordero Status: REG CLI Study: SCREENING MAMM (CAD), BILAT Date of Exam: 07/07/18 Exam# [id number] Ordering Dr: Johnnie Shelley MAMMOGRAPHY - BILATERAL SCREENING REASON FOR EXAM: Female, 48 years old. Routine annual screening examination. PERTINENT HISTORY: Non-contributory. TECHNIQUE: Digital bilateral breast terrell (3D mammographic acquisition) in the CC and MLO projections. 2-D mediolateral oblique (MLO) and craniocaudad (CC) views of both breasts were obtained. CAD: Full Field Digital Mammography with Computer Added Detection was performed. COMPARISON: Comparison is made with prior artery examination dated December 06, 2016. FINDINGS: Breast Composition: The breasts are heterogeneously dense, which may obscure small masses. There are no dominant masses or suspicious calcifications. Stable benign-appearing left axillary lymph nodes. No other significant abnormalities are identified. There has been no significant change since the prior study. BI/SCREENING MAMM (CAD), BILAT IMPRESSION: Stable bilateral screening mammogram. Yearly follow-up mammogram recommended. (A) ASSESSMENT CATEGORY: BIRADS Category 2: Benign. A letter regarding these results will be sent to the patient by the facility within 30 days. Approximately 10% of breast cancers are not detected by mammography. A normal mammogram should not delay biopsy of a clinically suspicious abnormality. [id number] Electronically Signed: Ricci Reddy MD at 9:02 EST Tel [phone], Service support , CC: DAYANNA Shelley Press Officer: Signed ALLERGIES ALLERGIES DATE TYPE / CODE NAME / CODE REACTION SEVERITY SOURCE 07/29/2018 Drug No Known Unknown [facility] Allergy/4160 Allergies/F00 [facility] [address](SNOMED [id number](RXNOR Repository CT) M) ENCOUNTERS ENCOUNTERS ADMIT/DISCHARGE ACCOUNT NUMBER ADMITTING ENCOUNTER LOCATION SOURCE CLASS 08/05/2018 [id number] [facility]ulatory [facility] [place] [address] RECRoom: System [id number]: Repository [id number] 07/30/2018 [id number] Ambulatory [facility] ding:NM Repository 07/29/2018/07/29/20 [id number] Emergency [address] ding:ED Repository 07/29/2018 [id number] Ambulatory [facility] ding:US Repository 07/23/2018/07/23/20 [id number] Emergency [address] ding:ED Repository 07/07/2018 [id number] Ambulatory [facility] ding:OPBI Repository PAYERS PAYERS ENCOUNTER GUARANTOR PAYER SUBSCRIBER SOURCE 08/05/2018 Sushil L Primary Sushil [facility] ZaaDOB: Insurance:AetnaPolBiocontroly ZaaDOB: System Number: Effective [id number] Repository [address] [place], Date: [place] [address]Xen: () 07/30/2018 SUSHIL L [id number] Primary SUSHIL L [facility] HOME [employer]ITTMAN, Insurance:AETNAPolicy ZAMPADOB: [facility] [place] [address]Vdr: Number: [id number] [id number] Repository (HP) Date:[id number] [facility] [id number] [place] [address]DL: 07/30/2018 Secondary NOT GIVENUNK [facility] Insurance:SELF PAY [facility] Number: Effective Repository Date:2018-07-30 07/29/2018 SUSHIL L [id number] Primary SUSHIL L [facility] [employer], Insurance:AETNAPolicy ZAMPADOB: [facility] [place] [address]Bxc: Number: [id number] Hospital [id number] Repository (HP) Date:[id number] [address] [place] [address]QS: 07/29/2018 Secondary NOT GIVENUNK [facility] Insurance:SELF PAY [facility] Number: Effective Repository Date:2018-07-29 07/29/2018 SUSHIL CASTELLONA203 Primary SUSHIL Rodriguez HOME STRITTMAN, Insurance:AETNAPolicy ZAMPADOB: [place] [address]Kae: Number: [id number] Hospital [id number] Repository (HP) Date:[id number] [address] [address]HM: 07/29/2018 Secondary NOT GIVENUNK [place] Insurance:SELF PAY [facility] Number: Effective Repository Date:2018-07-28 07/23/2018 SUSHIL CASTELLONA203 Primary SUSHIL Rodriguez HOME STRITTMAN, Insurance:AETNAPolicy ZAMPADOB: [facility] [place] [address]Zil: Number: [id number] Hospital [id number] Repository (HP) Date:[id number] [address] [address]JR: 07/23/2018 Secondary NOT GIVENUNK Michael Insurance:SELF PAY [facility] Number: Effective Repository Date:2018-07-23 07/07/2018 SUSHIL CASTELLONA203 Primary SUSHIL WOOD Insurance:AETNAPolicy ZAMPADOB: [facility] [place] [place] Number: [id number] [address]Jce: 330 [id number] Repository [phone] (HP) Date:[id number] [address] [address]QE: 07/07/2018 Secondary NOT GIVENUNK Michael Insurance:SELF PAY [facility] Number: Effective Repository Date:2018-05-14
== END ==
PROVIDERS: Family Provider Family Medicine; PCP Family Medicine; Referring Provider Family Medicine; Visit Provider Family Medicine
DX: R10.11 Right upper quadrant pain (principal)
CPT/HCPCS: 76700

== ENCOUNTER 2018-07-29 17:58 | Emergency (ER) | payer OTHER, SELFPAY ==
[2018-07-29 17:58] VITALS: BP 152/105; PULSE 78; RESP 24; TEMP 36.6; O2SAT 100; BMI 28.0
[2018-07-29 18:14] VITALS: BP 143/96; PULSE 78; RESP 16; O2SAT 100
--- NOTE | 2018-07-29 18:30 | CT_ITS ---
STUDY: CT ABDOMEN AND PELVIS WITH CONTRAST REASON FOR EXAM: Female, 48 years old. Right upper quadrant pain RADIATION DOSAGE (If Supplied By Facility): CTDIvol = ( 9.86 ) mGy, DLP = ( 704.68 ) mGycm TECHNIQUE: Transaxial images were obtained from the dome of the diaphragm to the symphysis pubis without oral contrast. 100ML ml of Isovue 300 contrast was administered. Sagittal and coronal images were reconstructed. Individualized dose optimization techniques were used for this CT. COMPARISON: None. FINDINGS: There is minor atelectasis at the right lung base.. There is a tiny right pleural effusion. The visualized portions of the heart are within normal limits. Liver is fatty infiltrated without mass or bile duct dilatation. Normal gallbladder and extrahepatic biliary system. Normal spleen. Normal pancreas. Normal bilateral adrenal glands. Normal right kidney. 2 tiny nonobstructing calculi in left kidney. No evidence for hydronephrosis or ureteral calculus. No renal mass.. Normal visualized stomach. Normal small intestine. Minor diverticular changes in the distal descending and sigmoid colon without evidence for acute diverticulitis The appendix is visualized and appears normal. Normal abdominal aorta. Normal inferior vena cava. Normal retroperitoneum. Normal urinary bladder. Normal abdominal wall. Normal osseous structures. CT/Abdomen/Pelvis WITH Contrast IMPRESSION: Tiny right pleural effusion and mild basilar atelectasis. Left nephrolithiasis without evidence for hydronephrosis or ureteral calculus. Minor diverticular changes of the sigmoid colon without evidence for acute diverticulitis Electronically Signed: David Caldera MD at 21:14 EST , Service support ,
--- NOTE | 2018-07-29 18:30 | EKG12_ITS ---
Test Reason : ABD PAIN Blood Pressure : / mmHG Vent. Rate : 078 BPM Atrial Rate : 078 BPM P-R Int : 152 ms QRS Dur : 074 ms QT Int : 380 ms P-R-T Axes : 064 039 052 degrees QTc Int : 433 ms Normal sinus rhythm with sinus arrhythmia Normal ECG Confirmed by RODRIGUEZ HOOVER, JOANNE ([id number]), editor in chief newspaper SANNA LEÓN ([id number]) on 08/01/2018 9:09:46 AM Referred By: Guzman Navarro Confirmed By:JOANNE FRIAS MD
--- NOTE | 2018-07-29 18:33 | ED.VISSUMM ---
- ER Visit Summary Date of Service: 07/29/18 Chief Complaint: Abdominal pain History of Present Illness: The patient is a 48 F who presents for 8 days of abdominal pain. Patient was seen on July 23 for the same complaint. Abdominal pain started in the umbilical region and was sharp. Patient was evaluated and had an unremarkable workup. Since then the pain became in the bilateral upper abdomen 5 days ago, today's in the right upper quadrant and is constant pain with intermittent sharp stabbing episodes. Today the pain is also in the bilateral upper back. Patient has a cough. She denies fever, chest pain, shortness of breath, vomiting, diarrhea, blood in stool or urinary symptoms. Patient had an ultrasound performed this morning that was ordered by her primary care doctor that showed no gallbladder, pancreatic or renal pathology that would explain her symptoms. Patient denies any medical history other than hypertension. She does not drink or smoke. Physical Examination: Vital signs: afebrile, hemodynamically stable, no hypoxia on room air General: well nourished, well developed, in no distress Skin: warm, dry, no rash, no pallor HEENT: normocephalic and atraumatic; PERRL, EOMI, moist mucous membranes Cardiovascular: regular rate and rhythm without murmurs, no peripheral edema, 2+ pulses all distal extremities Respiratory: No increased work of breathing, lungs are clear to auscultation bilaterally, no rales, rhonchi or wheezing Abdominal: Abdomen is soft, diffusely tender with normoactive bowel sounds, no guarding or rebound, no masses MSK: Moves all extremities, no deformities, normal strength Neuro: Awake and alert, oriented ?4. No facial droop, sensation and motor function intact and symmetric Test Results: Abnormal Lab Results 07/29/18 07/29/18 07/29/18 18:40 18:40 18:55 WBC 5.7 RBC 5.11 Hgb 13.3 Hct 40.1 MCV 78.5 L MCH 26.0 L MCHC 33.2 RDW 12.9 RDW Differential 36.5 Plt Count 211 MPV 9.6 Immature Gran % (Auto) 0.000 Neut % (Auto) 57.4 Lymph % (Auto) 30.0 [place] % (Auto) 11.3 H Eos % (Auto) 1.0 Baso % (Auto) 0.3 Absolute Neuts (auto) 3.3 Absolute Lymphs (auto) 1.72 Total Counted Not Reportable Sodium 139 Potassium 3.7 Chloride 106 Carbon Dioxide 27.0 Anion Gap 6 BUN 16 Creatinine 0.88 Estim Creat Clear Calc 65.38 Est GFR (MDRD) Af Amer 88 Est GFR (MDRD) Non-Af 73 BUN/Creatinine Ratio 18.1 Glucose 97 Calcium 8.8 Total Bilirubin 0.80 AST 15 ALT 23 Alkaline Phosphatase 131 H Troponin I < 0.015 Total Protein 7.4 Albumin 3.8 Globulin 3.6 Albumin/Globulin Ratio 1.1 Lipase 90 Urine Color Brown Urine Clarity Sl. Cloudy Urine pH 7.0 Ur Specific [place] 1.015 Urine Protein 30 H Urine Glucose (UA) Normal Urine Ketones 5 H Urine Occult Blood 250 H Urine Nitrite Negative Urine Bilirubin Negative Urine Urobilinogen Normal Ur Leukocyte Esterase 100 H Urine RBC > 100 SEEN Urine WBC 0-5 SEEN Ur Squamous Epith Cells 0-5 SEEN Urine Bacteria 0 SEEN Urine Mucus 0 SEEN Clinical Impression(s) from Imaging Studies Abdomen/Pelvis CT 07/29/18 18:30 IMPRESSION: Tiny right pleural effusion and mild basilar atelectasis. Left nephrolithiasis without evidence for hydronephrosis or ureteral calculus. Minor diverticular changes of the sigmoid colon without evidence for acute diverticulitis Electronically Signed: David Caldera MD at 21:14 EST , Service support , Chest X-Ray 07/29/18 20:28 IMPRESSION: No acute cardiopulmonary pathology Electronically Signed: David Caldera MD at 21:17 EST , Service support , Medications Given Discontinued Medications Hydrocodone Bitart/Acetaminophen (Calmar 5mg-325mg) 1 tablet PO X1 ONE Stop: 07/29/18 21:46 Last Admin: 07/29/18 22:01 Dose: 1 tablet Hydrocodone Bitart/Acetaminophen (Calmar 5mg-325mg) 0 tablet PO .TAKE HOME MED JESSICA Last Admin: 07/29/18 22:02 Dose: 4 tablet Sodium Chloride () 1,000 mls @ 1,000 mls/hr IV .Q1H ONE Stop: 12/11/18 19:29 Last Admin: 18 18:56 Dose: 1,000 mls/hr Morphine Sulfate () 4 mg IV X1 ONE Stop: 18 18:31 Last Admin: 18 18:56 Dose: 4 mg Ondansetron HCl (Zofran) 4 mg IV X1 ONE Stop: 18 18:31 Last Admin: 18 18:56 Dose: 4 mg Emergency Department Course and Treatment: This is patient's third medical encounter for this abdominal pain. Chart review shows her ultrasound was unremarkable this morning. Because of patient's pain is in the upper abdomen and in the thoracic back, chest workup was included today. EKG showed sinus rhythm without ischemia or ectopy. Troponin negative. Chest x-ray showed no signs of infiltrates or pneumothorax. CBC showed no leukocytosis. CMP was unremarkable. Urinalysis was positive for gross hematuria, and upon questioning, the patient stated she is currently menstruating. CT of the abdomen and pelvis with contrast was performed since this is patient's third visit for this pain. It showed no process to explain her ongoing and evolving abdominal pain. It did show a tiny right pleural effusion with atelectasis, nonobstructing renal stones, diverticulosis without diverticulitis. Patient had received morphine and Zofran for pain with some relief. She was given a dose of Calmar prior to discharge and sent with a home pack for the same. She already has antiemetics at home. She has an appointment at 10:15 in the morning with her primary care doctor for another evaluation of her abdominal pain. Patient will keep this appointment. She was given a copy of her lab work and imaging results to share with her primary care doctor. We discussed she may need referral to gastroenterology if her pain persists. Patient discharged home in improved condition. Treatment Plan: [] Disposition: [] Impression: Abdominal pain, unknown etiology; menstrual period This note was generated with [employer] dictation software. It may contain incorrect words, spelling, and punctuation that were not noted in review of the chart prior to signing ED Disposition - Plan for ED Patient: Disposition: Home or Assisted Living Chief Complaint: Abd Pain Instructions: ED Abdominal Pain Unkn Cause Referrals: Guzman Navarro [Primary Care Provider] - 1 Day Additional Instructions: Keep your appointment with your doctor tomorrow morning as already scheduled. Use your nausea medicine that you have at home as needed for nausea and you may use the home dose pack of pain medication as needed for pain. You may need referral to a secondary art teacher, and discussed this with your doctor tomorrow. If you have any worsening of your condition or any new concerning symptoms, please return immediately to the emergency department for another evaluation.
--- NOTE | 2018-07-29 18:37 | ED.DCSUM_ITS ---
- ER Visit Summary Date of Service: 07/29/18 Chief Complaint: Abdominal pain History of Present Illness: The patient is a 48 F who presents for 8 days of abdominal pain. Patient was seen on July 23 for the same complaint. Abdominal pain started in the umbilical region and was sharp. Patient was evaluated and had an unremarkable workup. Since then the pain became in the bilateral upper abdomen 5 days ago, today's in the right upper quadrant and is constant pain with intermittent sharp stabbing episodes. Today the pain is also in the bilateral upper back. Patient has a cough. She denies fever, chest pain, shortness of breath, vomiting, diarrhea, blood in stool or urinary symptoms. Patient had an ultrasound performed this morning that was ordered by her primary care doctor that showed no gallbladder, pancreatic or renal pathology that would explain her symptoms. Patient denies any medical history other than hypertension. She does not drink or smoke. Physical Examination: Vital signs: afebrile, hemodynamically stable, no hypoxia on room air General: well nourished, well developed, in no distress Skin: warm, dry, no rash, no pallor HEENT: normocephalic and atraumatic; PERRL, EOMI, moist mucous membranes Cardiovascular: regular rate and rhythm without murmurs, no peripheral edema, 2+ pulses all distal extremities Respiratory: No increased work of breathing, lungs are clear to auscultation bilaterally, no rales, rhonchi or wheezing Abdominal: Abdomen is soft, diffusely tender with normoactive bowel sounds, no guarding or rebound, no masses MSK: Moves all extremities, no deformities, normal strength Neuro: Awake and alert, oriented ?4. No facial droop, sensation and motor function intact and symmetric Test Results: Abnormal Lab Results 07/29/18 07/29/18 07/29/18 18:40 18:40 18:55 WBC 5.7 RBC 5.11 Hgb 13.3 Hct 40.1 MCV 78.5 L MCH 26.0 L MCHC 33.2 RDW 12.9 RDW Differential 36.5 Plt Count 211 MPV 9.6 Immature Gran % (Auto) 0.000 Neut % (Auto) 57.4 Lymph % (Auto) 30.0 [place] % (Auto) 11.3 H Eos % (Auto) 1.0 Baso % (Auto) 0.3 Absolute Neuts (auto) 3.3 Absolute Lymphs (auto) 1.72 Total Counted Not Reportable Sodium 139 Potassium 3.7 Chloride 106 Carbon Dioxide 27.0 Anion Gap 6 BUN 16 Creatinine 0.88 Estim Creat Clear Calc 65.38 Est GFR (MDRD) Af Amer 88 Est GFR (MDRD) Non-Af 73 BUN/Creatinine Ratio 18.1 Glucose 97 Calcium 8.8 Total Bilirubin 0.80 AST 15 ALT 23 Alkaline Phosphatase 131 H Troponin I < 0.015 Total Protein 7.4 Albumin 3.8 Globulin 3.6 Albumin/Globulin Ratio 1.1 Lipase 90 Urine Color Brown Urine Clarity Sl. Cloudy Urine pH 7.0 Ur Specific [place] 1.015 Urine Protein 30 H Urine Glucose (UA) Normal Urine Ketones 5 H Urine Occult Blood 250 H Urine Nitrite Negative Urine Bilirubin Negative Urine Urobilinogen Normal Ur Leukocyte Esterase 100 H Urine RBC > 100 SEEN Urine WBC 0-5 SEEN Ur Squamous Epith Cells 0-5 SEEN Urine Bacteria 0 SEEN Urine Mucus 0 SEEN Clinical Impression(s) from Imaging Studies Abdomen/Pelvis CT 07/29/18 18:30 IMPRESSION: Tiny right pleural effusion and mild basilar atelectasis. Left nephrolithiasis without evidence for hydronephrosis or ureteral calculus. Minor diverticular changes of the sigmoid colon without evidence for acute diverticulitis Electronically Signed: David Caldera MD at 21:14 EST , Service support , Chest X-Ray 07/29/18 20:28 IMPRESSION: No acute cardiopulmonary pathology Electronically Signed: David Caldera MD at 21:17 EST , Service support , Medications Given Discontinued Medications Hydrocodone Bitart/Acetaminophen ([place]anna 5mg-325mg) 1 tablet PO X1 ONE Stop: 07/29/18 21:46 Last Admin: 07/29/18 22:01 Dose: 1 tablet Hydrocodone Bitart/Acetaminophen ([place]anna 5mg-325mg) 0 tablet PO .TAKE HOME MED JESSICA Last Admin: 07/29/18 22:02 Dose: 4 tablet Sodium Chloride () 1,000 mls @ 1,000 mls/hr IV .Q1H ONE Stop: 12/11/18 19:29 Last Admin: 18 18:56 Dose: 1,000 mls/hr Morphine Sulfate () 4 mg IV X1 ONE Stop: 18 18:31 Last Admin: 18 18:56 Dose: 4 mg Ondansetron HCl (Zofran) 4 mg IV X1 ONE Stop: 18 18:31 Last Admin: 18 18:56 Dose: 4 mg Emergency Department Course and Treatment: This is patient's third medical encounter for this abdominal pain. Chart review shows her ultrasound was unremarkable this morning. Because of patient's pain is in the upper abdomen and in the thoracic back, chest workup was included today. EKG showed sinus rhythm without ischemia or ectopy. Troponin negative. Chest x-ray showed no signs of infiltrates or pneumothorax. CBC showed no leukocytosis. CMP was unremarkable. Urinalysis was positive for gross hematuria, and upon questioning, the patient stated she is currently menstruating. CT of the abdomen and pelvis with contrast was performed since this is patient's third visit for this pain. It showed no process to explain her ongoing and evolving abdominal pain. It did show a tiny right pleural effusion with atelectasis, nonobstructing renal stones, diverticulosis without diverticulitis. Patient had received morphine and Zofran for pain with some relief. She was given a dose of Hanna prior to discharge and sent with a home pack for the same. She already has antiemetics at home. She has an appointment at 10:15 in the morning with her primary care doctor for another evaluation of her abdominal pain. Patient will keep this appointment. She was given a copy of her lab work and imaging results to share with her primary care doctor. We discussed she may need referral to gastroenterology if her pain persists. Patient discharged home in improved condition. Treatment Plan: [] Disposition: [] Impression: Abdominal pain, unknown etiology; menstrual period This note was generated with [employer] dictation software. It may contain incorrect words, spelling, and punctuation that were not noted in review of the chart prior to signing ED Disposition - Plan for ED Patient: Disposition: Home or Assisted Living Chief Complaint: Abd Pain Instructions: ED Abdominal Pain Unkn Cause Referrals: Guzman Navarro [Primary Care Provider] - 1 Day Additional Instructions: Keep your appointment with your doctor tomorrow morning as already scheduled. Use your nausea medicine that you have at home as needed for nausea and you may use the home dose pack of pain medication as needed for pain. You may need referral to a lieutenant firefighter, and discussed this with your doctor tomorrow. If you have any worsening of your condition or any new concerning symptoms, please return immediately to the emergency department for another evaluation.
--- NOTE | 2018-07-29 18:39 | ED.RN ---
NO OLD EKGS IN MUSE
[2018-07-29 18:52] LABS: Absolute Lymphocyte Count 1.72 X10^3/ul (0.83-4.51); Absolute Neutrophil Count 3.3 X10^3/uL (2.0-7.7); Basophil# 0.02 X10^3/uL; Basophil% 0.3 % (0-1); Eosinophil# 0.06 X10^3/uL; Hematocrit 40.1 % (37-47); Hemoglobin 13.3 g/dl (12.0-15.0); Lymphocyte # 1.72 X10^3/ul (4.0); Mean Corp Hgb Conc 33.2 g/gl (32-36); Mean Corpuscular Volume 78.5 fL (81-99); Mean Platelet Vol. 9.6 fl (6.2-12.0); Monocyte# 0.65 X10^3/uL; Monocyte% 11.3 % (0-10); Neutrophil # 3.28 X10^3/uL (2.7-7.7); Neutrophil % 57.4 % (47-70); Platelet Count 211 K/mm3 (150-450); RBC Distribution Width CV 12.9 % (11.6-14.6); RBC Distribution Width SD 36.5 fl (35.1-43.9); Red Blood Count 5.11 M/mm3 (4.2-5.4); White Blood Count 5.7 K/mm3 (4.4-11.0)
[2018-07-29] MEDS: Morphine 4 MG/ML Syringe IV (18:56)
[2018-07-29] MEDS: Ondansetron 4 MG/2 ML Vial IV (18:56)
[2018-07-29] MEDS: 0.9% Normal Saline 1,000 ML 1000 ML IV (18:56)
[2018-07-29 19:03] LABS: Bacteria 0 SEEN /hpf (None Seen); Mucous, Urine 0 SEEN /hpf (<or=2+)
[2018-07-29 19:09] LABS: Color, Urine Brown (Yellow); Glucose, Dipstick Normal (Normal); Ketone-Dipstick 5 mg/dl (Negative); Leukocyte Esterase-Dipstick 100 /ul (Negative); Nitrite-Dipstick Negative (Negative); Occult Blood-Urine 250 /ul (Negative); Protein-Dipstick 30 mg/dl (Negative); Specific Gravity, Urine 1.015 (1.002-1.030); Urine Bilirubin Dipstick Negative (Negative); Urine Clarity Sl. Cloudy (Clear); Urine Urobilinogen Normal (Normal)
[2018-07-29 19:10] LABS: ALB/GLOB Ratio 1.1 RATIO (0.9-2.4); AST(SGOT) 15 U/L (15-37); Alanine Aminotransfer ALT/SGPT 23 U/L (13-56); Albumin, Serum 3.8 g/dL (3.2-5.0); Alkaline Phosphatase 131 U/L (45-117); Anion Gap 6 (5-15); BUN 16 mg/dL (7-18); BUN/Creat Ratio 18.1 RATIO (10-20); Calcium,Total 8.8 mg/dL (8.5-10.1); Chloride 106 mmol/L (98-107); Creatinine, Serum 0.88 mg/dL (0.55-1.02); EST Glomerular Filtration Rate 73 mL/min (>60); Est Glom Filt Rate - Afr Amer 88 mL/min (>60); Estimated Creatinine Clearance 65.38 ml/min; Globulin 3.6 g/dL (2.2-4.2); Glucose 97 mg/dL (74-106); Lipase 90 U/L (73-393); Potassium 3.7 mmol/L (3.5-5.1); Protein, Total 7.4 g/dL (6.4-8.2); Sodium Level 139 mmol/L (136-145)
[2018-07-29 19:22] LABS: Red Blood Cells-Urine > 100 SEEN /hpf (0-5); Squamous Epithelial Cells - UA 0-5 SEEN /hpf (5-10); White Blood Cells 0-5 SEEN /hpf (0-5)
[2018-07-29 19:36] LABS: POSITIVE COUNT NO; POSITIVE DIFFERENTIAL NO; POSITIVE MORPHOLOGY NO
[2018-07-29 20:00] VITALS: BP 140/89; PULSE 86; RESP 16; O2SAT 99
--- NOTE | 2018-07-29 20:28 | RAD_ITS ---
STUDY: X-RAY CHEST REASON FOR EXAM: Female, 48 years old. Chest pain TECHNIQUE: PA and lateral COMPARISON: None. FINDINGS: The lungs are clear and expanded. There is no demonstrated pleural abnormality. Normal size heart. Normal mediastinum and jennifer. Normal visualized pulmonary arteries. Normal visualized aortic arch and descending thoracic aorta. Dorsal spine demonstrates scoliosis and degenerative change Normal visualized ribs, clavicles, and shoulders. There is no demonstrated abnormality of the visualized soft tissue structures of the upper abdomen. RAD/Chest PA and Lateral IMPRESSION: No acute cardiopulmonary pathology Electronically Signed: David Caldera MD at 21:17 EST , Service support ,
--- NOTE | 2018-07-29 21:47 | DCINST.ED_ITS ---
ED Disposition - Plan for ED Patient: Disposition: Home or Assisted Living Chief Complaint: Abd Pain Instructions: ED Abdominal Pain Unkn Cause Referrals: Guzman Navarro [Primary Care Provider] - 1 Day Additional Instructions: Keep your appointment with your doctor tomorrow morning as already scheduled. Use your nausea medicine that you have at home as needed for nausea and you may use the home dose pack of pain medication as needed for pain. You may need referral to a vice president planning, and discussed this with your doctor tomorrow. If you have any worsening of your condition or any new concerning symptoms, please return immediately to the emergency department for another evaluation.
[2018-07-29] MEDS: HYDROcodone Bitartrate/Apap 5/325 Tablet PO ×2 (22:01→22:02)
--- OUTSIDE RECORDS SUMMARY | 2018-09-15 00:05 | XMS RPT_ITS ---
:1970 Author Organization OHIP Care Team Providers Name Role Phone Reji Ugalde Attending Unavailable UNKNOWN, PROVIDER Referring Unavailable Fracasso, Guzman Primary Care Unavailable Fracasso, Guzman Primary Care Unavailable Tara Hernandez Attending Unavailable James Rossi Attending Unavailable Fracasso, Guzman Primary Care Unavailable Fracasso, Guzman Attending Unavailable Fracasso, Guzman Referring Unavailable Fracasso, Guzman Primary Care Unavailable Fracasso, Guzman Attending Unavailable Fracasso, Guzman Referring Unavailable Fracasso, Guzman Primary Care Unavailable PETRILLA, JOHNNIE Attending Unavailable PETRILLA, JOHNNIE Referring Unavailable PETRILLA, JOHNNIE Primary Care Unavailable PROBLEMS PROBLEMS DATE TYPE CONDITION / CODE ATTENDING STATUS SOURCE 08/05/2018 Admitting Chronic Minoo, Active [facility] Diagnosis cholecystitis / Reji System K81.1(ICD-10) Repository 08/05/2018 Admitting Allergic rhinitis, Minoo, Active [facility] Diagnosis unspecified / Reji System J30.9(ICD-10) Repository 08/05/2018 Admitting Carpal tunnel Minoo, Active [facility] Diagnosis syndrome, Reji System unspecified upper Repository limb / G56.00(ICD-10) 08/05/2018 Admitting Essential (primary) Minoo, Active [facility] Diagnosis hypertension / Reji System I10(ICD-10) Repository 08/05/2018 Admitting Atopic dermatitis, Minoo, Active [facility] Diagnosis unspecified / Reji System L20.9(ICD-10) Repository 08/05/2018 Admitting Raynaud's syndrome Minoo, Active [facility] Diagnosis without gangrene / Reji System I73.00(ICD-10) Repository 08/05/2018 Admitting Allergy status to Minoo, Active [facility] Diagnosis oth drug/meds/biol Reji System subst status / Repository Z88.8(ICD-10) PROCEDURES PROCEDURES No Procedure Records FoundRESULTS RESULTS OP NOTE Observed: 08/05/2018 Status: F Source: [facility] 2:11 PM SYSTEM REPOSITORY OPERATIVE NOTE DATE OF PROCEDURE: 08/05/2018 SURGEON: REJI UGALDE M.D., TITUS KAIAKO KOHANGA REO: see chart PREOPERATIVE DIAGNOSIS: Chronic cholecystitis POSTOPERATIVE [...] M.D., FACS Observed: 08/05/2018 Status: F Source: [facility] SURGICAL PATHOLOGY 1:54 PM SYSTEM REPOSITORY [id number] [facility] PATHOLOGY AND LABORATORY MEDICINE [address] [place] [address] [phone] Fax - FINAL SURGICAL PATHOLOGY REPORT NAME: SUSHIL LACY : 1970 48 Y Nickolas BENNETT NO.: [id number] LOCATION: [facility] 333 2 PROCEDURE 08/05/2018 DATE: SURGEON: REJI [...] at 0.2 cm. No masses are identified. [facility] sections are submitted in one cassette. (3 ss, 1) [facility] Disclaimer: The following statement applies to all immunohistochemistry, in situ hybridization, molecular studies, and immunofluorescence testing. The use of one or more reagents in the above tests is regulated as an analyte specific reagent (ASR). These tests were developed and their performance characteristics determined by the clinical laboratories of [facility]. They have not been cleared by [...] negativity on decalcified specimens. Case reviewed at [place] [address] [place] [address]. DEPARTMENT OF PATHOLOGY AND LABORATORY MEDICINE [place], [place] [address] HCG,URINE QUAL Collected: 08/05/2018 Status: F Source: [facility] 10:45 AM SYSTEM REPOSITORY TYPE CODE TESTS RESULT OUT OF REFERENCE UNITS RANGE LAB HCGUR Negative NA Negative HCG,Urine Qual Result Comment: is the most common reason for HCG in urine, although choriocarcinoma, hydatidiform mole, and certain nontropho- blastic malignancies also result in detectable urinary HCG levels. Sensitivity = 20mIU/mL. Performed By: #### HCGUR #### [facility] [address] [place] [address] 12 LEAD ELECTROCARDIOGRAM Observed: 08/01/2018 Status: F Source: [place] 9:10 AM [facility] [place] [facility] Cardiovascular Services [address] [place] [address] 12 Lead EKG 07/29/18 1849 MR#: [id number] Acct: [id number] Name: SUSHIL LACY Rep #: [id number] : 1970 48 From: Willem Olvera MD [...] ECG Confirmed by RODRIGUEZ HOOVER, WILLEM ([id number]), features editor SANNA LEÓN ([id number]) on 08/01/2018 9:09:46 AM Referred By: Guzman Navarro Confirmed By:WILLEM OLVERA MD 08/01/18 0909 Date Willem Olvera MD CC: Tara Hernandez MD; Guzman Navarro Signed HEPATOBILLIARY IMG Observed: 07/30/2018 Status: F Source: [place] W/PHARM INT 12:09 PM [facility] [place] [facility] Imaging Services [address] [place] [address] Hepatobilliary Img w/Pharm Int MR#: [id number] Acct: [id number] Name: BAMBISUSHIL L Rep #: [id number] : 1970 F 48 From: Howard Guerrero DO PCP: Guzman Navarro Status: REG CLI Study: Hepatobilliary Img w/Pharm Int Date of Exam: 07/30/18 Exam# [id number] Ordering Dr: Guzman Navarro CLINICAL: 48-year-old female [...] , Service support , CC: Guzman Navarro Aluminum Can Collector: Signed EMERGENCY DEPARTMENT Observed: 07/30/2018 Status: F Source: [place] SUMMARY 12:29 AM [facility] Medical Records Department [address] [place] [address] Emergency Department Summary 07/29/18 1833 MR#: [id number] Acct: [id number] Name: SUSHIL LACY Rep #: [id number] : 1970 48 From: Tara Hernandez MD [...] , Medications Given Discontinued Medications Hydrocodone Bitart/Acetaminophen (Vanderbilt 5mg-325mg) 1 tablet PO X1 ONE Stop: 07/29/18 21:46 Last Admin: 07/29/18 22:01 Dose: 1 tablet Hydrocodone Bitart/Acetaminophen (Vanderbilt 5mg-325mg) 0 tablet PO .TAKE HOME MED [...] relief. She was given a dose of Vanderbilt prior to discharge and sent with a [...] menstrual period This note was generated with [employer] software. It may contain incorrect words, spelling, [...] pain. You may need referral to a test puller, and discussed this with your doctor tomorrow. If you have any worsening of your condition or any new concerning symptoms, please return immediately to the emergency department for another evaluation. What to do if you have Problems For any increased pain, shortness of breath, bleeding, nausea or vomiting, chest pain, or any unexpected problems, contact your Primary Care Provider. Call [facility] ([phone]) or report to the closest Emergency Room. Call 911 if necessary. 07/30/18 0029 <Electronically signed by Tara Hernandez MD> Date Tara Hernandez MD Cosigner Signature (If Indicated): Date CC: Guzman Navarro DISCHARGE INSTRUCTION Observed: 07/29/2018 Status: F Source: [place] 11:31 PM [facility] [place] [facility] Medical Records Department [address] [place] [address] Discharge Instruction 07/29/18 2146 MR#: [id number] Acct: [id number] Name: SUSHIL LACY Rep #: [id number] : 1970 48 From: Tara Hernandez MD PCP: Guzman Navarro Status: [facility] ER ED Disposition - Plan for ED [...] pain. You may need referral to a test puller, and discussed this with your doctor tomorrow. If you have any worsening of your condition or any new concerning symptoms, please return immediately to the emergency department for another evaluation. What to do if you have Problems For any increased pain, shortness of breath, bleeding, nausea or vomiting, chest pain, or any unexpected problems, contact your Primary Care Provider. Call [facility] ([phone]) or report to the closest Emergency Room. Call 911 if necessary. 07/29/18 0261 <Electronically signed by Tara Hernandez MD> Date Tara Hernandez MD Cosigner Signature (If Indicated): Date CC: Guzman Navarro URINALYSIS, COMPLETE Collected: 07/29/2018 Status: F Source: [place] 6:55 PM [facility] [place] [facility] Order Comment: Order Date: 07/29/18 COLOR [...] URINE SEEN Performed By: #### L400.0001 #### [facility] [address] [facility] [place], [address] Observed: 07/29/2018 Status: F Source: [place] CULTURE, URINE 6:55 PM [facility] Order Date: 07/29/18 Urine Culture ORGANISM 1: Mixed Gram Positive Organisms Trona Count >100,000 MIX CULTURE Mixed contaminants. Submit a new specimen if indicated. Performed By: #### M100.0650 #### [facility] [address] [facility] [place], [address] COMPREHENSIVE METABOLIC Collected: 07/29/2018 Status: F Source: [place] PROFIL 6:40 PM [facility] [place] [facility] TYPE CODE TESTS RESULT OUT OF [...] Performed By: #### L500.4050, L501.2450, L501.4010 #### [facility] [address] [facility] [place], [place], [address] LIPASE Collected: 07/29/2018 Status: F Source: [place] 6:40 PM [facility] [place] [facility] TYPE CODE TESTS RESULT OUT OF RANGE REFERENCE UNITS LAB L501.2450 73-393 U/L Normal LIPASE 90 Performed By: #### L500.4050, L501.2450, L501.4010 #### [facility] [address] [place], [place], [address] TROPONIN-I Collected: 07/29/2018 Status: F Source: [place] 6:40 PM [facility] TYPE CODE TESTS RESULT OUT OF RANGE REFERENCE UNITS LAB L501.4010 <0.045 ng/mL Normal < 0.015 TROPONIN-I Result Comment: TROPONIN-I EXPECTED VALUES <0.045 Negative 0.045 - 0.590 Consistent with Cardiac Damage > OR = 0.600 Critical Value Not every elevated troponin is indicative of NV. These values should be used with clinical judgement in examining the patient's clinical picture for diagnosis. To establish a diagnosis of NV versus myocardial injury, there must be a demonstrated rise and/or fall in the troponin values, in addition to ischemic symptoms, EKG changes, new regional wall motion abnormality, and/or angiographical evidence. PLEASE NOTE: REFERENCE RANGES EDITED 17 Performed By: #### L500.4050, L501.2450, L501.4010 #### [facility] [place], [address] CBC W/DIFF, AUTOMATED Collected: 07/29/2018 Status: F Source: [place] 6:40 PM [facility] [place] [facility] TYPE CODE TESTS RESULT OUT OF [...] Lymph 1.72 Performed By: #### L100.0100 #### [facility] [address] [place], [address] ABDOMEN/PELVIS WITH Observed: 07/29/2018 Status: F Source: [place] CONTRAST 6:32 PM [facility] REPOSITORY [facility] Imaging Services [address] [place] [address] Abdomen/Pelvis WITH Contrast MR#: [id number] Acct: [id number] Name: SUSHIL LACY Rep #: [id number] : 1970 F 48 From: David Caldera MD PCP: Guzman Navarro Status: REG ER Study: Abdomen/Pelvis WITH Contrast Date of Exam: 07/29/18 Exam# [id number] Ordering Dr: Tara Hernandez MD STUDY: CT [...] , CC: Tara Hernandez MD; Guzman Navarro Aluminum Can Collector: Signed CHEST PA AND LATERAL Observed: 07/29/2018 Status: F Source: [place] 6:32 PM [facility] [place] [facility] Imaging Services [address] [place] [address] Chest PA and Lateral MR#: [id number] Acct: [id number] Name: SUSHIL LACY Rep #: [id number] : 1970 F 48 From: David Caldera MD PCP: Guzman Navarro Status: REG ER Study: Chest PA and Lateral Date of Exam: 07/29/18 Exam# [id number] Ordering Dr: Tara Hernandez MD STUDY: X-RAY [...] , CC: Tara Hernandez MD; Guzman Navarro Aluminum Can Collector: Signed ABDOMEN COMPLETE Observed: 07/29/2018 Status: F Source: [place] 8:45 AM [facility] [place] [facility] Imaging Services [address] [place] [address] Abdomen Complete MR#: [id number] Acct: [id number] Name: SUSHIL LACY Rep #: [id number] : 1970 F 48 From: Damián Yeung MD PCP: Guzman Navarro Status: REG CLI Study: Abdomen Complete Date of Exam: 07/29/18 Exam# [id number] Ordering Dr: Guzman Navarro STUDY: ABDOMINAL ULTRASOUND [...] , Service support , CC: Guzman Navarro Aluminum Can Collector: Signed EMERGENCY DEPARTMENT Observed: 07/24/2018 Status: F Source: [place] SUMMARY 12:56 AM [facility] [place] [facility] Medical Records Department [address] [place] [address] Emergency Department Summary 07/23/18 2316 MR#: [id number] Acct: [id number] Name: SUSHIL LACY Rep #: [id number] : 1970 48 From: James Rossi MD [...] menstrual cycle now. Patient works as an [employer] and has had multiple sick contacts. She [...] uncertain cause. This note was generated with [employer] dictation software. It may contain incorrect words, [...] problems, contact your Primary Care Provider. Call [facility] ([phone]) or report to the closest Emergency Room. Call 911 if necessary. 07/24/18 0056 <Electronically signed by James Rossi MD> Date James Rossi MD Cosigner Signature (If Indicated): Date CC: Guzman Navarro CBC W/DIFF, AUTOMATED Collected: 07/23/2018 Status: F Source: [place] 10:25 PM [facility] TYPE CODE TESTS RESULT OUT OF [...] Lymph 1.91 Performed By: #### L100.0100 #### [facility] [address] [place], [address] COMPREHENSIVE METABOLIC Collected: 07/23/2018 Status: F [facility]25 PM [facility] TYPE CODE TESTS RESULT OUT OF [...] 5 Performed By: #### L500.4050, L501.2450 #### [facility] [address] [facility] [place], [address] LIPASE Collected: 07/23/2018 Status: F Source: [place] 10:25 PM [facility] TYPE CODE TESTS RESULT OUT OF RANGE REFERENCE UNITS LAB L501.2450 73-393 U/L Normal LIPASE 148 Performed By: #### L500.4050, L501.2450 #### [facility] [address] [facility] [place], [address] ,SERUM,HCG QUALI. Collected: Status: F Source: [place] 07/23/2018 10:25 PM [facility] TYPE CODE TESTS RESULT OUT OF REFERENCE UNITS RANGE LAB L700.7000 0-9 Nonpreg Negative Normal HCGSQUAL NEGATIVE LAB L700.6700 =>Qualitative mIU/mL Normal HCG Qual < 1 triggr Performed By: #### L700.6800 #### [facility] [address] [place], [address] SCREENING MAMM (CAD), Observed: 07/07/2018 Status: F Source: [place] BILAT 10:29 AM [facility] [place] [facility] Imaging Services [address] [place] [address] SCREENING MAMM (CAD), BILAT MR#: [id number] Acct: [id number] Name: SUSHIL LACY Nahomy Rep #: [id number] : 1970 F 48 From: Ricci Reddy MD PCP: DAYANNA Cordero Status: REG CLI Study: SCREENING MAMM (CAD), BILAT Date of Exam: 07/07/18 Exam# [id number] Ordering Dr: Johnnie Shelley MAMMOGRAPHY - BILATERAL [...] delay biopsy of a clinically suspicious abnormality. [id number] Electronically Signed: Ricci Reddy MD at 9:02 EST Tel [phone], Service support , CC: DAYANNA Shelley Aluminum Can Collector: Signed ALLERGIES ALLERGIES DATE TYPE / CODE NAME / CODE REACTION SEVERITY SOURCE 07/29/2018 Drug No Known Unknown [place] [facility] Allergy/4160 Allergies/F00 [facility] [address](SNOMED 4890348(RXNOR Repository CT) M) ENCOUNTERS ENCOUNTERS ADMIT/DISCHARGE ACCOUNT NUMBER ADMITTING ENCOUNTER LOCATION SOURCE CLASS 08/05/2018 [id number] Ambulatory [address] [place] [address] RECRoom: System [id number]: Repository [id number] 07/30/2018 [id number] Ambulatory [facility] ding:NM Repository 07/29/2018/07/29/20 [id number] Emergency [address] ding:ED Repository 07/29/2018 [id number] Ambulatory [facility] ding:US Repository 07/23/2018/07/23/20 [id number] Emergency [address] ding:ED Repository 07/07/2018 [id number] Ambulatory [facility] ding:OPBI Repository PAYERS PAYERS ENCOUNTER GUARANTOR PAYER SUBSCRIBER SOURCE 08/05/2018 Sushil L Primary Sushil Corea [facility] ZaaDOB: Insurance:AetnaPolDoYouRemembery ZaaDOB: System Number: Effective [id number] Repository [place], Date: [place] [address]Ron: () 07/30/2018 SUSHIL L [id number] Primary SUSHIL L [place] HOME STRITTMAN, Insurance:AETNAPolicy ZAMPADOB: [facility] [place] [address]Hck: Number: [id number] Hospital [id number] Repository (HP) Date:3100-21-89TA [facility] [id number] [place] [phone]: 07/30/2018 Secondary NOT GIVENUNK [place] Insurance:SELF PAY [facility] Number: Effective Repository Date:2018-07-30 07/29/2018 SUSHIL L [id number] Primary SUSHIL L [place] [facility] [employer], Insurance:AETNAPolicy ZAMPADOB: [facility] [place] [address]Rys: Number: [id number] Hospital [id number] Repository (HP) Date:0472-37-67RZ [id number] [place] [phone]: 07/29/2018 Secondary NOT GIVENUNK [place] Insurance:SELF PAY [facility] Number: Effective Repository Date:2018-07-29 07/29/2018 SUSHIL CASTELLONA203 Primary SUSHIL [place] HOME STRITTMAN, Insurance:AETNAPolicy ZAMPADOB: [place] [address]Gfy: Number: [id number] Hospital [id number] Repository (HP) Date:1892-19-25YM [address], [place] [address]NM: 07/29/2018 Secondary NOT GIVENUNK [place] Insurance:SELF PAY [facility] Number: Effective Repository Date:2018-07-28 07/23/2018 SUSHIL CASTELLONA203 Primary SUSHIL [place] HOME STRITTMAN, Insurance:AETNAPolicy ZAMPADOB: [facility] [place] [address]Sky: Number: [id number] Hospital [id number] Repository (HP) Date:0498-90-14ON [address] [address]QY: 07/23/2018 Secondary NOT GIVENUNK [place] Insurance:SELF PAY [facility] Number: Effective Repository Date:2018-07-23 07/07/2018 SUSHIL CASTELLONA203 Primary SUSHIL WOOD Insurance:AETNAPolicy ZAMPADOB: [facility] [place] Number: [id number] [facility] [address]Etm: 330 [id number] Repository [phone] (HP) Date:6529-91-43SG [address], [place] [address]WJ: 07/07/2018 Secondary NOT GIVENUNK [place] Insurance:SELF PAY [facility] Number: Effective Repository Date:2018-05-14
== END 2018-07-29 22:05 | disposition home or self-care (01) ==
PROVIDERS: Emergency Provider Emergency Medicine; Family Provider Family Medicine; PCP Family Medicine
DX: R10.11 Right upper quadrant pain (principal); J90 Pleural effusion, not elsewhere classified; J98.11 Atelectasis; N20.0 Calculus of kidney; K57.30 Diverticulosis of large intestine without perforation or abscess without bleeding; I10 Essential (primary) hypertension; Z79.899 Other long term (current) drug therapy
CPT/HCPCS: 71046; 74177; 80053; 81001; 83690; 84484; 85025; 87086; 87088; 93005; 96361; 96374; 96375; 99283; J7030; Q9967; A4216; J2405

== ENCOUNTER → 2018-07-30 12:00 | Outpatient (CLI) | payer OTHER, SELFPAY ==
[2018-07-29 17:58] VITALS: BMI 28.0
--- NOTE | 2018-07-30 12:09 | NM_ITS ---
CLINICAL: 48-year-old female with history of right upper quadrant abdominal pain. RADIONUCLIDE HEPATOBILIARY SCINTIGRAPHY COMPARISON: Abdominal ultrasound report 07/29/2018, CT of the abdomen-pelvis report 07/29/2018 FINDINGS: Following the intravenous administration of 5.8 mCi of 99m Tc Mebrofenin, hepatobiliary images reveal: 1. Relatively prompt and homogeneous radiopharmaceutical concentration is noted by a normal sized liver. No parenchymal defects are identified. 2. Gallbladder activity is identified at 10 minutes post radiopharmaceutical administration. 3. Small intestinal tract is observed at 30 minutes following tracer injection. 4. Washout of the radiopharmaceutical by the hepatic parenchyma appears qualitatively normal. The patient was administered a fatty meal (8 ounces Boost). The post fatty meal ingestion gallbladder ejection fraction calculated at 30 minutes following fatty meal administration was noted to be 42.0 % (normal greater than 30%). Duodenal-gastric reflux is demonstrated following the administration of the fatty meal. NM/Hepatobilliary Img w/Pharm Int IMPRESSION: 1. A gallbladder ejection fraction calculated to be greater than 30% following the administration of an ingested fatty meal makes the probability of functional hepatobiliary disease (gallbladder and/or sphincter of Oddi dyskinesia) and/or organic hepatobiliary disease (chronic acalculous cholecystitis and/or cystic duct syndrome) to be low. (Amy and Ifeanyi, J Nucl Med 43: 1603, 2002). 2. There is scintigraphic evidence of post fatty meal duodenal gastric reflux. Electronically Signed: Howard Guerrero DO at 14:19 EST Tel , Service support ,
--- OUTSIDE RECORDS SUMMARY | 2018-09-15 15:33 | XMS RPT_ITS ---
:1970 Author Organization OHIP Care Team Providers Name Role Phone Reji Ugalde Attending Unavailable UNKNOWN, PROVIDER Referring Unavailable Fracasso, Guzman Primary Care Unavailable Ramon, Guzman Attending Unavailable Frajaguar, Guzman Referring Unavailable Ramon, Guzman Primary Care Unavailable Fracajackieo, Guzman Primary Care Unavailable Tara Hernandez Attending Unavailable PETRILLA, JOHNNIE Attending Unavailable PETRILLA, JOHNNIE Referring Unavailable PETRIRITESHA, JOHNNIE Primary Care Unavailable FloJames Attending Unavailable Fracasso, Guzman Primary Care Unavailable Fracasso, Guzman Attending Unavailable Fracasso, Guzman Referring Unavailable Ramon, Guzman Primary Care Unavailable PROBLEMS PROBLEMS DATE TYPE CONDITION / CODE ATTENDING STATUS SOURCE 08/05/2018 Admitting Chronic Minoo, Active [facility] Diagnosis cholecystitis / Reji System K81.1(ICD-10) Repository 08/05/2018 Admitting Allergic rhinitis, Minoo, Active [facility] Diagnosis unspecified / Reji System J30.9(ICD-10) Repository 08/05/2018 Admitting Carpal tunnel Minoo, Active [facility] Diagnosis syndrome, [facility] System unspecified upper Repository limb / G56.00(ICD-10) 08/05/2018 Admitting Essential (primary) Minoo, Active [facility] Diagnosis hypertension / Reji System I10(ICD-10) Repository 08/05/2018 Admitting Atopic dermatitis, Minoo, Active [facility] Diagnosis unspecified / Reji System L20.9(ICD-10) Repository 08/05/2018 Admitting Raynaud's syndrome Minoo, Active [facility] Diagnosis without gangrene / Reji System I73.00(ICD-10) Repository 08/05/2018 Admitting Allergy status to Minoo, Active [facility] Diagnosis oth drug/meds/biol Reji System subst status / Repository Z88.8(ICD-10) PROCEDURES PROCEDURES No Procedure Records FoundRESULTS RESULTS OP NOTE Observed: 08/05/2018 Status: F Source: [place] 2:11 PM SYSTEM REPOSITORY OPERATIVE NOTE DATE OF PROCEDURE: 08/05/2018 SURGEON: REJI UGALDE M.D., [employer] P[employer] TEACHER: see chart PREOPERATIVE DIAGNOSIS: Chronic cholecystitis POSTOPERATIVE [...] M.D., FACS Observed: 08/05/2018 Status: F Source: [facility] SURGICAL PATHOLOGY 1:54 PM SYSTEM REPOSITORY [id number] [facility] PATHOLOGY AND LABORATORY MEDICINE [address] [place] [address] [phone] Fax - FINAL SURGICAL PATHOLOGY REPORT NAME: SUSHIL LACY : 1970 48 Y Nickolas BENNETT NO.: [id number] LOCATION: [facility] 333 2 PROCEDURE 08/05/2018 DATE: SURGEON: [...] at 0.2 cm. No masses are identified. Literacy Coordinator sections are submitted in one cassette. (3 ss, 1) [facility]/JAF Disclaimer: The following statement applies to all immunohistochemistry, in situ hybridization, molecular studies, and immunofluorescence testing. The use of one or more reagents in the above tests is regulated as an analyte specific reagent (ASR). These tests were developed and their performance characteristics determined by the clinical laboratories of [facility]. They have not been cleared by the [...] negativity on decalcified specimens. Case reviewed at [facility] [address] [place] [address]. DEPARTMENT OF PATHOLOGY AND LABORATORY MEDICINE [place], [place] [address] HCG,URINE QUAL Collected: 08/05/2018 Status: F Source: [facility] 10:45 AM SYSTEM REPOSITORY TYPE CODE TESTS RESULT OUT OF REFERENCE UNITS RANGE LAB HCGUR Negative NA Negative HCG,Urine Qual Result Comment: is the most common reason for HCG in urine, although choriocarcinoma, hydatidiform mole, and certain nontropho- blastic malignancies also result in detectable urinary HCG levels. Sensitivity = 20mIU/mL. Performed By: #### HCGUR #### [facility] [address] [place] [address] 12 LEAD ELECTROCARDIOGRAM Observed: 08/01/2018 Status: F Source: [place] 9:10 AM REPOSITORY [facility] Cardiovascular Services [address] [place] [address] 12 Lead EKG 07/29/18 1849 MR#: [id number] Acct: [id number] Name: SUSHIL LACY Rep #: [id number] : 1970 48 From: Willem Olvera MD [...] F Source: [place] W/PHARM INT 12:09 PM REPOSITORY [facility] Imaging Services [address] [place] [address] Hepatobilliary Img w/Pharm Int MR#: [id number] Acct: [id number] Name: BAMBISUSHIL L Rep #: [id number] : 1970 F 48 From: Howard Guerrero DO PCP: Guzman Navarro Status: REG CLI Study: Hepatobilliary Img w/Pharm Int Date of Exam: 07/30/18 Exam# [id number] Ordering Dr: Guzman Navarro CLINICAL: 48-year-old female [...] , Service support , CC: Guzman Navarro Body Joiner: Signed EMERGENCY DEPARTMENT Observed: 07/30/2018 Status: F Source: [place] SUMMARY 12:29 AM [facility] Medical Records Department [address] [place] [address] Emergency Department Summary 07/29/18 1833 MR#: [id number] Acct: [id number] Name: SUSHIL LACY Rep #: [id number] : 1970 48 From: Tara Hernandez MD [...] , Medications Given Discontinued Medications Hydrocodone Bitart/Acetaminophen (Haviland 5mg-325mg) 1 tablet PO X1 ONE Stop: 07/29/18 21:46 Last Admin: 07/29/18 22:01 Dose: 1 tablet Hydrocodone Bitart/Acetaminophen (Haviland 5mg-325mg) 0 tablet PO .TAKE HOME MED [...] relief. She was given a dose of Haviland prior to discharge and sent with a [...] menstrual period This note was generated with [employer]ry Groupation software. It may contain incorrect words, spelling, [...] pain. You may need referral to a celery packer, and discussed this with your doctor tomorrow. If you have any worsening of your condition or any new concerning symptoms, please return immediately to the emergency department for another evaluation. What to do if you have Problems For any increased pain, shortness of breath, bleeding, nausea or vomiting, chest pain, or any unexpected problems, contact your Primary Care Provider. Call [facility] ([phone]) or report to the closest Emergency Room. Call 911 if necessary. 07/30/18 0029 <Electronically signed by Tara Hernandez MD> Date Tara Hernandez MD Cosigner Signature (If Indicated): Date CC: Guzman Navarro DISCHARGE INSTRUCTION Observed: 07/29/2018 Status: F Source: [place] 11:31 PM REPOSITORY [facility] Medical Records Department [address] [place] [address] Discharge Instruction 07/29/18 2146 MR#: [id number] Acct: [id number] Name: SUSHIL LACY Rep #: [id number] : 1970 48 From: Tara Hernandez MD PCP: Guzman Navarro Status: [facility] ER ED Disposition - Plan for ED [...] pain. You may need referral to a celery packer, and discussed this with your doctor tomorrow. If you have any worsening of your condition or any new concerning symptoms, please return immediately to the emergency department for another evaluation. What to do if you have Problems For any increased pain, shortness of breath, bleeding, nausea or vomiting, chest pain, or any unexpected problems, contact your Primary Care Provider. Call [facility] ([phone]) or report to the closest Emergency Room. Call 911 if necessary. 07/29/18 3691 <Electronically signed by Tara Hernandez MD> Date Tara Hernandez MD Cosigner Signature (If Indicated): Date CC: Guzman Navarro URINALYSIS, COMPLETE Collected: 07/29/2018 Status: F Source: [place] 6:55 PM REPOSITORY Order Comment: Order Date: 07/29/18 COLOR [...] Performed By: #### L400.0001 #### [facility] [address] [facility] [place], [address] Observed: 07/29/2018 Status: F Source: [place] CULTURE, URINE 6:55 PM REPOSITORY Order Date: 07/29/18 Urine Culture ORGANISM 1: Mixed Gram Positive Organisms Madison Count >100,000 MIX CULTURE Mixed contaminants. Submit a new specimen if indicated. Performed By: #### M100.0650 #### [facility] [address] [facility] [place], [address] COMPREHENSIVE METABOLIC Collected: 07/29/2018 Status: F Source: [place] PROFIL 6:40 PM REPOSITORY TYPE CODE TESTS RESULT OUT OF [...] #### L500.4050, L501.2450, L501.4010 #### [facility] [address] [facility]. [place], [place], [address] LIPASE Collected: 07/29/2018 Status: F Source: [place] 6:40 PM REPOSITORY TYPE CODE TESTS RESULT OUT OF RANGE REFERENCE UNITS LAB L501.2450 73-393 U/L Normal LIPASE 90 Performed By: #### L500.4050, L501.2450, L501.4010 #### [facility] [address] [place], [place], [address] TROPONIN-I Collected: 07/29/2018 Status: F Source: [place] 6:40 PM REPOSITORY TYPE CODE TESTS RESULT OUT OF RANGE REFERENCE UNITS LAB L501.4010 <0.045 ng/mL Normal < 0.015 TROPONIN-I Result Comment: TROPONIN-I EXPECTED VALUES <0.045 Negative 0.045 - 0.590 Consistent with Cardiac Damage > OR = 0.600 Critical Value Not every elevated troponin is indicative of OK. These values should be used with clinical judgement in examining the patient's clinical picture for diagnosis. To establish a diagnosis of OK versus myocardial injury, there must be a demonstrated rise and/or fall in the troponin values, in addition to ischemic symptoms, EKG changes, new regional wall motion abnormality, and/or angiographical evidence. PLEASE NOTE: REFERENCE RANGES EDITED 17 Performed By: #### L500.4050, L501.2450, L501.4010 #### [facility] [place], [address] CBC W/DIFF, AUTOMATED Collected: 07/29/2018 Status: F Source: [place] 6:40 PM REPOSITORY TYPE CODE TESTS RESULT OUT OF [...] Performed By: #### L100.0100 #### [facility] [address] [place], [address] ABDOMEN/PELVIS WITH Observed: 07/29/2018 Status: F Source: [place] CONTRAST 6:32 PM [facility] REPOSITORY [facility] Imaging Services [address] [place] [address] Abdomen/Pelvis WITH Contrast MR#: [id number] Acct: [id number] Name: SUSHIL LACY Rep #: [id number] : 1970 F 48 From: David Caldera MD PCP: Guzman Navarro Status: REG ER Study: Abdomen/Pelvis WITH Contrast Date of Exam: 07/29/18 Exam# [id number] Ordering Dr: Tara Hernandez MD STUDY: CT [...] , CC: Tara Hernandez MD; Guzman Navarro Body Joiner: Signed CHEST PA AND LATERAL Observed: 07/29/2018 Status: F Source: [place] 6:32 PM REPOSITORY [facility] Imaging Services [address] [place] [address] Chest PA and Lateral MR#: [id number] Acct: [id number] Name: SUSHIL LACY Rep #: [id number] : 1970 F 48 From: David Caldera MD PCP: Guzman Navarro Status: REG ER Study: Chest PA and Lateral Date of Exam: 07/29/18 Exam# [id number] Ordering Dr: Tara Hernandez MD STUDY: X-RAY [...] , CC: Tara Hernandez MD; Guzman Navarro Body Joiner: Signed ABDOMEN COMPLETE Observed: 07/29/2018 Status: F Source: [place] 8:45 AM REPOSITORY [facility] Imaging Services [address] [place] [address] Abdomen Complete MR#: [id number] Acct: [id number] Name: SUSHIL LACY Rep #: [id number] : 1970 F 48 From: Damián Yeung MD PCP: Guzman Navarro Status: REG CLI Study: Abdomen Complete Date of Exam: 07/29/18 Exam# [id number] Ordering Dr: Guzman Navarro STUDY: ABDOMINAL ULTRASOUND [...] , Service support , CC: Guzman Navarro Body Joiner: Signed EMERGENCY DEPARTMENT Observed: 07/24/2018 Status: F Source: [place] SUMMARY 12:56 AM REPOSITORY [facility] Medical Records Department [address] [place] [address] Emergency Department Summary 07/23/18 2316 MR#: [id number] Acct: [id number] Name: SUSHIL LACY Rep #: [id number] : 1970 48 From: James Rossi MD [...] menstrual cycle now. 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 She [...] uncertain cause. This note was generated with [employer]self dictation software. It may contain incorrect words, [...] problems, contact your Primary Care Provider. Call [facility] ([phone]) or report to the closest Emergency Room. Call 911 if necessary. 07/24/18 0056 <Electronically signed by James Rossi MD> Date James Rossi MD Cosigner Signature (If Indicated): Date CC: Guzman Navarro CBC W/DIFF, AUTOMATED Collected: 07/23/2018 Status: F Source: [place] 10:25 PM REPOSITORY TYPE CODE TESTS RESULT OUT OF [...] Performed By: #### L100.0100 #### [facility] [address] [place], [address] COMPREHENSIVE METABOLIC Collected: 07/23/2018 Status: F Source: [facility] 10:25 PM REPOSITORY TYPE CODE TESTS RESULT OUT OF [...] By: #### L500.4050, L501.2450 #### [facility] [address] [facility] [place], [address] LIPASE Collected: 07/23/2018 Status: F Source: [place] 10:25 PM REPOSITORY TYPE CODE TESTS RESULT OUT OF RANGE REFERENCE UNITS LAB L501.2450 73-393 U/L Normal LIPASE 148 Performed By: #### L500.4050, L501.2450 #### [facility] [address] [facility] [place], [address] ,SERUM,HCG QUALI. Collected: Status: F Source: [place] 07/23/2018 10:25 PM REPOSITORY TYPE CODE TESTS RESULT OUT OF REFERENCE UNITS RANGE LAB L700.7000 0-9 Nonpreg Negative Normal HCGSQUAL NEGATIVE LAB L700.6700 =>Qualitative mIU/mL Normal HCG Qual < 1 triggr Performed By: #### L700.6800 #### [facility] [address] [place], [address] SCREENING MAMM (CAD), Observed: 07/07/2018 Status: F Source: [place] BILAT 10:29 AM REPOSITORY [facility] Imaging Services [address] [place] [address] SCREENING MAMM (CAD), BILAT MR#: [id number] Acct: [id number] Name: SUSHIL LACY Nahomy Rep #: [id number] : 1970 F 48 From: Ricci Reddy MD PCP: DAYANNA Cordero Status: REG CLI Study: SCREENING MAMM (CAD), BILAT Date of Exam: 07/07/18 Exam# [id number] Ordering Dr: Johnnie Shelley MAMMOGRAPHY - BILATERAL [...] delay biopsy of a clinically suspicious abnormality. [id number] Electronically Signed: Ricci Reddy MD at 9:02 EST Tel [phone], Service support , CC: DAYANNA Shelley Body Joiner: Signed ALLERGIES ALLERGIES DATE TYPE / CODE NAME / CODE REACTION SEVERITY SOURCE 07/29/2018 Drug No Known Unknown [place] [facility] Allergy/4160 Allergies/F00 [facility] [address](SNOMED 5197088(RXNOR Repository CT) M) ENCOUNTERS ENCOUNTERS ADMIT/DISCHARGE ACCOUNT NUMBER ADMITTING ENCOUNTER LOCATION SOURCE CLASS 08/05/2018 [id number] [facility] [place] [address] RECRoom: System [id number]: Repository [id number] 07/30/2018 [id number] Ambulatory [facility] ding:NM Repository 07/29/2018/07/29/20 [id number] Emergency [address] ding:ED Repository 07/29/2018 [id number] Ambulatory [facility] ding:[place] Repository 07/23/2018/07/23/20 [id number] Emergency [address] ding:ED Repository 07/07/2018 [id number] Ambulatory [facility] ding:OPBI Repository PAYERS PAYERS ENCOUNTER GUARANTOR PAYER SUBSCRIBER SOURCE 08/05/2018 Ssuhil L Primary Sushil [facility] ZaaDOB: Insurance:[employer] ZaaDOB: System Number: Effective [id number] Repository [place], Date: [place] [address]Tro: () 07/30/2018 SUSHIL L [id number] Primary SUSHIL L [place] [facility] STRITTMAN, Insurance:AETNAPolicy ZAMPADOB: [facility] [place] [address]Fag: Number: [id number] [id number] Repository (HP) Date:9914-13-21XR [facility] [address]AL [place] [address]ZQ: 07/30/2018 Secondary NOT GIVENUNK [place] Insurance:SELF PAY [facility], [place]) Number: Effective Repository Date:2018-07-30 07/29/2018 SUSHIL L [id number] Primary SUSHIL L [place] [facility] [employer], Insurance:AETNAPolicy ZAMPADOB: [facility] [place] [address]Dfk: Number: [id number] [id number] Repository (HP) Date:3054-56-86DA [address] [place] [address]KS: 07/29/2018 Secondary NOT GIVENUNK [place] Insurance:SELF PAY [facility], [place]) Number: Effective Repository Date:2018-07-29 07/29/2018 SUSHIL CASTELLONA203 Primary SUSHIL [place] HOME STR[place]TM[place], Insurance:AETNAPolicy ZAMPADOB: [place] [address]Nbv: Number: [id number] [id number] Repository (HP) Date:0242-31-40[address] [address]KF: 07/29/2018 Secondary NOT GIVENUNK [place] Insurance:SELF PAY [facility] ([place], [place]) Number: Effective Repository Date:2018-07-28 07/23/2018 SUSHIL CASTELLONA203 Primary SUSHIL [place] HOME STR[place]TM[place], Insurance:AETNAPolicy ZAMPADOB: [facility] [place] [address]Axe: Number: [id number] [id number] Repository (HP) Date:1920-51-09RC [address] [address]KR: 07/23/2018 Secondary NOT GIVENUNK [place] Insurance:SELF PAY [facility], [place]) Number: Effective Repository Date:2018-07-23 07/07/2018 SUSHIL CASTELLONA203 Primary SUSHIL WOOD Insurance:AETNAPolicy ZAMPADOB: [facility] [place] Number: [id number] [address]Jly: 330 [id number] Repository [phone] (HP) Date:6697-05-78CZ [address] [address]JI: 07/07/2018 Secondary NOT GIVENUNK [place] Insurance:SELF PAY [facility] ([place], [place]) Number: Effective Repository Date:2018-05-14
== END ==
PROVIDERS: Family Provider Family Medicine; PCP Family Medicine; Referring Provider Family Medicine; Visit Provider Family Medicine
DX: R10.11 Right upper quadrant pain (principal)
CPT/HCPCS: 78227; A9537

== ENCOUNTER → 2018-09-12 07:49 | Outpatient (CLI) | payer OTHER, SELFPAY ==
--- NOTE | 2018-09-12 07:52 | US_ITS ---
STUDY: ABDOMINAL ULTRASOUND - RIGHT UPPER QUADRANT REASON FOR VISIT: Female, 48 years old. Epigastric and right upper quadrant pain TECHNIQUE: Ultrasound evaluation of the right upper quadrant was performed with real-time and static sanford-scale imaging. TECHNICAL QUALITY: Adequate. COMPARISON: None. FINDINGS: Liver: The liver measures 14.6 cm. There is fatty echogenicity of the liver. The bile ducts are within normal limits. There is hepatic color flow. The direction of portal flow is hepatopetal. There is no demonstrated mass lesion. Gallbladder: Status post cholecystectomy. Common Bile Duct (C.B.D.): The common bile duct measures 3.4 mm. Pancreas: Normal size of the head, body and tail of the pancreas. There is normal echogenicity of the pancreas. There is no demonstrated pancreatic mass or cyst. Right Kidney: Normal size of the right kidney. The right kidney measures 10.5 x 5.1 x 4.9 cm. Normal renal cortex. The right cortex measures 1.7 cm. There is no demonstrated renal mass or cyst. 4 mm nonobstructive stone. There is no right hydronephrosis. US/Gallbladder IMPRESSION: Fatty liver. Status post cholecystectomy. Nonobstructive right renal stone. Electronically Signed: Zeeshan Preston DO at 23:58 EST Tel [phone], Service support ,
[2018-09-12 09:00] LABS: Hematocrit 40.2 % (37-47); Hemoglobin 13.1 g/dl (12.0-15.0); Mean Corp Hgb Conc 32.6 g/gl (32-36); Mean Corpuscular Hgb 26.7 pg (27.0-32.0); Mean Corpuscular Volume 81.9 fL (81-99); Mean Platelet Vol. 10.2 fl (6.2-12.0); Platelet Count 175 K/mm3 (150-450); RBC Distribution Width SD 40.9 fl (35.1-43.9); Red Blood Count 4.91 M/mm3 (4.2-5.4); White Blood Count 7.2 K/mm3 (4.4-11.0)
[2018-09-12 09:01] LABS: Scan Indicated on CBC? Y/N NO
[2018-09-12 09:23] LABS: AST(SGOT) 25 U/L (15-37); Alanine Aminotransfer ALT/SGPT 41 U/L (13-56); Albumin, Serum 3.7 g/dL (3.2-5.0); Alkaline Phosphatase 129 U/L (45-117); Anion Gap 6 (5-15); BUN 18 mg/dL (7-18); BUN/Creat Ratio 23.1 RATIO (10-20); Calcium,Total 8.9 mg/dL (8.5-10.1); Chloride 108 mmol/L (98-107); Creatinine, Serum 0.78 mg/dL (0.55-1.02); EST Glomerular Filtration Rate 84 mL/min (>60); Est Glom Filt Rate - Afr Amer 102 mL/min (>60); Globulin 3.6 g/dL (2.2-4.2); Glucose 92 mg/dL (74-106); Protein, Total 7.3 g/dL (6.4-8.2); Sodium Level 140 mmol/L (136-145)
== END ==
PROVIDERS: Family Provider Family Medicine; PCP Family Medicine
DX: R10.11 Right upper quadrant pain (principal)
CPT/HCPCS: 36415; 76705; 80053; 85027